=== PATIENT | male | born 1945 | race Caucasian/White ===

== ENCOUNTER 2018-05-29 00:46 | Emergency (ER) | payer MEDICARE ==
[~2018-05-29] VITALS: Ht 175.3 cm; Wt 98.9 kg
[~2018-05-29 00:46] MED LIST: AMLO5 PO; ASPI81CH PO; ATOR40TA PO; Acidophilus La100 GM PO; BACL10 PO; BUME2 PO; BUPR150ER PO; CALCA500CH PO; CHOL10002 PO; Carvedilol12.5 MG PO; DOC250 PO; DOXA4 PO; ERGO50000 PO; FINA5 PO; FURO40 PO; HYDR10 PO; HYDR1TAB94 PO; INSUASPI; INSULANPEN SC; Isosorbide Mono10 MG PO; LEVEMIR FL100 UNIT/1 SC; Nitrostat0.4 MG SL; ONDA4 PO; RANI150 PO; SENN187 PO; Senna Laxative8.6 MG PO; TAMS.4ER PO; TRAM50 PO; TRAZ100 PO
[2018-05-29 01:10] LABS: Chloride (POC) 93 mmol/L (98-108); Creatinine (POC) 7.7 mg/dL (0.8-1.3); Glucose (ISTAT POC) 228 mg/dL (70-99); Hemoglobin (POC) 10.9 g/dL (13.5-17.5); Potassium (POC) 4.6 mmol/L (3.5-5.5); Sodium (POC) 133 mmol/L (135-148); Total CO2 (POC) 28 mmol/L (21-32)
[2018-05-29 01:15] LABS: BASOPHILS ABSOLUTE AUTO 0.03 K/mm3 (0.00-0.23); BASOPHILS PERCENT AUTO 0 % (0-2); EOSINOPHILS ABSOLUTE AUTO 0.04 K/mm3 (0.00-0.68); EOSINOPHILS PERCENT AUTO 0 % (0-6); Hematocrit 33.1 % (37.0-53.0); Hemoglobin 10.8 g/dL (13.5-17.5); IMMATURE GRAN ABSOLUTE AUTO 0.03 K/mm3 (0.00-0.10); IMMATURE GRAN PERCENT AUTO 0 % (0-1); LYMPHOCYTES ABSOLUTE AUTO 1.29 K/mm3 (0.84-5.20); LYMPHOCYTES PERCENT AUTO 14 % (21-46); MONOCYTES ABSOLUTE AUTO 0.65 K/mm3 (0.16-1.47); MONOCYTES PERCENT AUTO 7 % (4-13); Mean Corpuscular HGB 31.8 pg (26.0-34.0); Mean Corpuscular HGB Conc 32.6 g/dL (31.5-36.5); Mean Corpuscular Volume 97 fL (80-100); Mean Platelet Volume 11.5 fL (9.1-12.4); NEUTROPHILS ABSOLUTE AUTO 7.11 K/mm3 (1.96-9.15); NEUTROPHILS PERCENT AUTO 78 % (41-73); Platelet Count 145 K/mm3 (150-400); RDW Coefficient Variation 12.4 % (11.7-14.2); RDW Standard Deviation 44.6 fL (35.1-46.3); White Blood Cell Count 9.15 K/mm3 (4.00-11.30)
[2018-05-29 01:34] LABS: Troponin I 0.064 ng/mL (0.000-0.040)
[2018-05-29 01:35] LABS: Albumin, Blood 3.2 g/dL (3.4-5.0); Albumin/Globulin Ratio 0.8 (0.8-1.8); Bilirubin, Total 0.6 mg/dL (0.1-1.0); Bun/Creatinine Ratio 8.8 (12.0-20.0); Creatinine, Blood 7.27 mg/dL (0.60-1.20); Globulin, Blood 3.9 g/dL (2.2-4.0); Potassium, Blood 4.7 mmol/L (3.5-5.5); Total Protein, Blood 7.1 g/dL (6.4-8.2)
[2018-05-29] MEDS ORDERED: NOVOLIN 70100 UNIT/2 SQ (01:48)
[2018-05-29] MEDS ORDERED: DOCU100 PO (01:49)
[2018-05-29] MEDS ORDERED: CALCA400CH PO (01:49)
== END 2018-05-29 03:08 | disposition home or self-care (01) ==
LOC: ER 00:46
PROVIDERS: Emergency Medicine
DX: R09.89 Other specified symptoms and signs involving the circulatory and respiratory systems (principal); E11.9 Type 2 diabetes mellitus without complications; I10 Essential (primary) hypertension; I25.2 Old myocardial infarction; Z95.1 Presence of aortocoronary bypass graft
CPT/HCPCS: 71045; 80047; 80053; 83690; 84484; 85014; 85025; 93005; 93010; 99285-25

== ENCOUNTER 2018-09-29 11:41 | Inpatient (IN) | payer MEDICARE ==
[~2018-09-29] VITALS: Ht 175.3 cm; Wt 114.6 kg
[~2018-09-29 11:41] MED LIST changes: -ASPI81CH PO; +DOCU100 PO; +Humalog100 UNIT/3 SC; +LO-DOSE ASPIRIN81 MG PO; +[UNRECOGNIZED DRUG - OTHER] PO
[2018-09-29] MEDS ORDERED: GABA100 PO (13:34)
[2018-09-29] MEDS ORDERED: Flonase 0.05% N16 GM (13:36)
[2018-09-29] MEDS ORDERED: LORATADINE10 MG PO (13:36)
[2018-09-29] MEDS ORDERED: ROPI.25 PO (13:37)
[2018-09-29] MEDS ORDERED: SENN187 PO (13:38)
[2018-09-29] MEDS ORDERED: ALBU90OI61 INH (13:39)
[2018-09-29] MEDS ORDERED: Voltaren100 GM TOP (13:40)
[2018-09-29] MEDS ORDERED: NITR.4SL SL (13:41)
[2018-09-29] MEDS ORDERED: ONDA4 PO (13:42)
[2018-09-29] MEDS ORDERED: Almacone Liqui355 ML PO (13:43)
[2018-09-29] MEDS ORDERED: Metamucil Smooth1 EA PO (13:44)
[2018-09-29] MEDS ORDERED: CHOL10002 PO ×2 (13:44→16:40)
[2018-09-29] MEDS ORDERED: Novolog100 UNIT/1 SC (14:17)
[2018-09-29] MEDS ORDERED: Calcium Carbon650 MG PO (16:39)
[2018-09-29] MEDS ORDERED: Lantus100 UNIT/1 SC (16:44)
[2018-09-29] MEDS ORDERED: SALONPAS GEL-P1 EACH TD (16:47)
[2018-09-29] MEDS ORDERED: TRAM50 PO (16:48)
--- NOTE | 2018-09-29 18:16 | NUR ---
PT ADMITTED TO ROOM. ADMIT DONE. DENIES PAIN EXCEPT SOME LIGHT DISCOMFORT IN LEFT LEG. LEG IS SWOLLEN, STATES HAS BEEN FOR 2-3 MONTHS. SCAB BELOW LEFT KNEE. AND OLD SCABS ON TOES OF LEFT FOOT. PLAN TO TAKE PIX BY SHIFT END, IF NOT PASS TO TIGRE KHAN. PT STARTING DIALYSIS IN ROOM AT THIS TIME. FAMILY AT BEDSIDE. PT AMBULATED TO BATHROOM SBA. DID WELL. NO SOB NOTED. NO DIZZINESS OR UNSTEADINESS NOTED. DIALYSIS FISTULA RT ARM. NOTICE PLACED ABOVE BED. H/R REG, NO MURMER NOTED. PER TELE: AFIB WITH PVC'S, BBB, RATE 80'S. LUNGS CLEAR RESP EASY, UNLABORED. ON R.A. SITTING ON EDGE OF BED. BT X4 LAST BM TODAY. VOIDS BATHROOM. BED IN LOW POSITION, CALL LITEIN REACH, CALLS APROP
--- NOTE | 2018-09-29 18:47 | NUR ---
CALLED BACK FOR HD 1:1 NON-ROUTINE HOURS TREATMENT PER DR DICK'S ORDERS FOR PATIENT ADMITTED VIA ER FOR FLUID EXCESS, MISSED CHRONIC DIALYSIS APPOINTMENT AND C/O SOB.
--- NOTE | 2018-09-29 21:25 | NUR ---
Assumed care of pt at approx 1900 from ERIN To. Pt recieving hemodialysis, VSS, pt without complaints at this time. Alert and oriented, uses call light appropriately. See shift assessment for detailed assessment.
[2018-09-30 00:48] LABS: BASOPHILS ABSOLUTE AUTO 0.06 K/mm3 (0.00-0.23); BASOPHILS PERCENT AUTO 1 % (0-2); EOSINOPHILS ABSOLUTE AUTO 0.07 K/mm3 (0.00-0.68); EOSINOPHILS PERCENT AUTO 1 % (0-6); Hematocrit 36.8 % (37.0-53.0); Hemoglobin 11.7 g/dL (13.5-17.5); IMMATURE GRAN ABSOLUTE AUTO 0.02 K/mm3 (0.00-0.10); IMMATURE GRAN PERCENT AUTO 0 % (0-1); LYMPHOCYTES ABSOLUTE AUTO 0.85 K/mm3 (0.84-5.20); LYMPHOCYTES PERCENT AUTO 10 % (21-46); MONOCYTES ABSOLUTE AUTO 0.94 K/mm3 (0.16-1.47); MONOCYTES PERCENT AUTO 11 % (4-13); Mean Corpuscular HGB 32.4 pg (26.0-34.0); Mean Corpuscular HGB Conc 31.8 g/dL (31.5-36.5); Mean Corpuscular Volume 102 fL (80-100); Mean Platelet Volume 10.8 fL (9.1-12.4); NEUTROPHILS ABSOLUTE AUTO 6.28 K/mm3 (1.96-9.15); NEUTROPHILS PERCENT AUTO 77 % (41-73); Platelet Count 143 K/mm3 (150-400); RDW Coefficient Variation 14.3 % (11.7-14.2); RDW Standard Deviation 54.4 fL (35.1-46.3); Red Blood Cell Count 3.61 M/mm3 (4.30-5.90); White Blood Cell Count 8.22 K/mm3 (4.00-11.30)
[2018-09-30 01:07] LABS: Alanine Aminotransfer (ALT/SGP 56 U/L (12-78); Albumin, Blood 2.9 g/dL (3.4-5.0); Albumin/Globulin Ratio 0.6 (0.8-1.8); Alk Phos 194 U/L (50-136); Anion Gap 8 mmol/L (6-16); Aspartate Aminotrans (AST/SGOT 56 U/L (12-37); Bilirubin, Total 0.8 mg/dL (0.1-1.0); Blood Urea Nitrogen 63 mg/dL (8-24); Bun/Creatinine Ratio 16.4 (12.0-20.0); CO2, Blood 30 mmol/L (21-32); Calcium, Blood 8.4 mg/dL (8.5-10.1); Chloride, Blood 98 mmol/L (98-108); Creatinine, Blood 3.83 mg/dL (0.60-1.20); Globulin, Blood 4.6 g/dL (2.2-4.0); Glomerular Filtration Rate 17 (60-); Glucose, Blood 223 mg/dL (70-99); Magnesium, Blood 2.4 mg/dL (1.6-2.4); Phosphorus, Blood 4.2 mg/dL (2.5-4.9); Potassium, Blood 4.1 mmol/L (3.5-5.5); Sodium, Blood 136 mmol/L (136-145); Total Protein, Blood 7.5 g/dL (6.4-8.2)
--- NOTE | 2018-09-30 04:51 | NUR ---
SHIFT SUMMARY: PATIENT CONTINUOUSLY PACING THE ROOM THIS SHIFT STATING HE FEELS SLIGHTLY SOB. ALL SATURATIONS WNL, NO CHANGES TO LUNG SOUNDS. PATIENT C/O MONTERROSO AND LEFT HAND DISCOMFORT, MEDICATION GIVEN PER MD ORDERS AND HAND WRAPPED IN WARM BLANKET. PATEINT PROVIDED A RECLINER HE STATES HE IS MORE COMFORTABLE SLEEPING UPRIGHT. VSS, CALL LIGHT WITHIN REACH, NO OTHER ISSUES THIS SHIFT
--- NOTE | 2018-09-30 10:39 | NUR ---
Echocardiogram using 0.60ml of Definity contrast performed.
--- NOTE | 2018-09-30 17:10 | NUR ---
PT NOW UP IN CHAIR AWAITING DINNER. TRANSFERS SELF INDEP WITH CANE AROUND ROOM. ALL SCHED MEDS GIVEN. ADDITIONAL DOSE OF NORVASC JUST GIVEN. BP 164/89. ALSO GOT HOME MEDS REORDERED. DR CESPEDES CONSULTED TODAY, ADJUSTED MEDICATIONS, EKG AND ECHO DONE. CBG'S NOW BEING COVERED WITH INSULIN. NO OTHER ACUTE CHANGES NOTED THIS SHIFT. CONT TO MONITOR AND REPORT OFF TO PM RN.
--- NOTE | 2018-09-30 22:33 | NUR ---
Assumed care of pt at approx 1900. VSS. pt sitting in chair, breathing easy and unlabored. Pt in no apparent sign of distress. Pt recieved bed bath, ambulates with cane to and from bathroom with steady gait. Family with pt at bedside upon arrival. Family spoke with this RN and states that pt seems "off" and "forgetful". Pt has been alert and oriented, responds appropriately, uses call light appropriately. Pt able to make needs known. C/o generalized pain, Carlton Ramirez notified and ultram 50mg BID restarted this shift. See shift assessment for detailed assessment. Will continue to monitor and update as needed. Pt currently sitting in chair, call light in reach.
[2018-10-01 03:50] LABS: BASOPHILS ABSOLUTE AUTO 0.06 K/mm3 (0.00-0.23); BASOPHILS PERCENT AUTO 1 % (0-2); EOSINOPHILS ABSOLUTE AUTO 0.06 K/mm3 (0.00-0.68); EOSINOPHILS PERCENT AUTO 1 % (0-6); Hematocrit 35.6 % (37.0-53.0); Hemoglobin 11.3 g/dL (13.5-17.5); IMMATURE GRAN ABSOLUTE AUTO 0.02 K/mm3 (0.00-0.10); IMMATURE GRAN PERCENT AUTO 0 % (0-1); LYMPHOCYTES ABSOLUTE AUTO 0.94 K/mm3 (0.84-5.20); LYMPHOCYTES PERCENT AUTO 13 % (21-46); MONOCYTES ABSOLUTE AUTO 0.89 K/mm3 (0.16-1.47); MONOCYTES PERCENT AUTO 12 % (4-13); Mean Corpuscular HGB 32.2 pg (26.0-34.0); Mean Corpuscular HGB Conc 31.7 g/dL (31.5-36.5); Mean Corpuscular Volume 101 fL (80-100); NEUTROPHILS ABSOLUTE AUTO 5.49 K/mm3 (1.96-9.15); NEUTROPHILS PERCENT AUTO 74 % (41-73); Platelet Count 143 K/mm3 (150-400); RDW Coefficient Variation 14.2 % (11.7-14.2); RDW Standard Deviation 53.2 fL (35.1-46.3); Red Blood Cell Count 3.51 M/mm3 (4.30-5.90); White Blood Cell Count 7.46 K/mm3 (4.00-11.30)
[2018-10-01 04:08] LABS: Albumin, Blood 2.9 g/dL (3.4-5.0); Anion Gap 9 mmol/L (6-16); Blood Urea Nitrogen 93 mg/dL (8-24); Bun/Creatinine Ratio 18.7 (12.0-20.0); CO2, Blood 29 mmol/L (21-32); Calcium, Blood 8.5 mg/dL (8.5-10.1); Chloride, Blood 96 mmol/L (98-108); Creatinine, Blood 4.98 mg/dL (0.60-1.20); Glomerular Filtration Rate 12 (60-); Glucose, Blood 78 mg/dL (70-99); Phosphorus, Blood 6.6 mg/dL (2.5-4.9); Potassium, Blood 4.1 mmol/L (3.5-5.5); Sodium, Blood 134 mmol/L (136-145)
--- NOTE | 2018-10-01 04:57 | NUR ---
Shift Summary Pt increasingly forgetful this shift, found multiple times wandering in room stating "i am going to the dining baig" and "i am going to the living room to watch TV". asked orientation questions, pt able to answer appropriately, states he knows that he is in [facility]. Pt states he has not slept for the past two nights. Redirected pt multiple times this shift, pt compliant and follows directions but needs reinforcement. Pt able to walk independantly in room with steady gait. VSS. Denies chest pain or chest pressure. Denies SOB. Breathing remains easy and unlabored. pt frequents the bathroom with oligouria d/t hemodialysis. Call light in reach, pt currently in recliner watching TV. No events on tele. Will continue to monitor and update as needed.
--- NOTE | 2018-10-01 09:40 | NUR ---
PT TO DIALYSIS FOR HEMODIALYSIS.
--- NOTE | 2018-10-01 14:44 | NUR ---
RECEIVED REPORT AT SHIFT CHANGE AND ASSUMED CARE OF PATIENT. PT APPEARS DISHEVELED AND A BIT CONFUSED. WHILE HE KNOWS WHERE HE IS, HE HAS NONSENSICAL SPEECH PATTERN. IT WAS REPORTED TO THIS RN THAT THE PATIENT HAS NOT SLEPT WELL FOR SEVERAL DAYS. PROVIDING LOW-STIM ENVIRONMENT AND WILL HELP TO ALLOW PT TO SLEEP MUCH A POSSIBLE DURING SHIFT. PT IS SCHEDULED TO HAVE DIALYSIS TODAY. WILL CONTINUE TO MONITOR AND FOLLOW ORDERS FOR THIS PATIENT.
--- NOTE | 2018-10-01 18:16 | NUR ---
CALLED DR. EDWARDS, SHE STATED WE CAN CHANGE ABX TO PO AND ADDITIONALLY ORDERED A SLEEP AID FOR TONIGHT. ENTERED ORDERS PER
--- NOTE | 2018-10-01 18:18 | NUR ---
SUMMARY: PT HAD A COUPLE OF NAPS TODAY, HOWEVER HE WAS UP AND DOWN SEVERAL TIMES TO HAVE BM'S AND USE THE BATHROOM. PT STATES HE IS STARTING TO FEEL A BIT BETTER THIS EVENING. PT HAD HEMODIALYSIS TODAY. WHILE PT WAS SLEEPING, IV IN LFA WAS PULLED OUT. THIS RN CALLED FOR ORDERS. SHE STATED NOT TO PLACE ANOTHER IV AND CHANGED MEDS TO PO FOR POTENTIAL UPCOMING DISCHARGE. WILL CONTINUE TO MONITOR AND GIVE REPORT TO NOC RN. BED IS LOW AND LOCKED, BED ALARM ON.
--- NOTE | 2018-10-02 00:19 | NUR ---
Assumed care of pt at approx 1900. Pt VSS, breathing easy and unlabored, denies chest pain or chest pressure. Denies SOB. Pt remains forgetful of limitations and bed alarm has been inplace this shift to ensure pt safety. Pt is alert and oriented, does not call as instructed. Bed alarm activated two times since 1899, pt redirected to use call light to ask for assistance, verbalizes understanding but then proceeds to attempt to get out of bed alone. Pt with new medications this shift to aide in sleep, for this reason use of BSC in place for pt this shift to limit risk for fall. pt sleeping on and off so far this shift, compliant with CPAP, o2 saturations >95%. See shift assessment for detailed assessment. At this time, pt asleep, bed alarm in place, call light in reach, bed in lowest and locked position. This RN will continue to monitor pt closely and update as needed.
[2018-10-02 03:53] LABS: BASOPHILS ABSOLUTE AUTO 0.05 K/mm3 (0.00-0.23); BASOPHILS PERCENT AUTO 1 % (0-2); EOSINOPHILS ABSOLUTE AUTO 0.09 K/mm3 (0.00-0.68); EOSINOPHILS PERCENT AUTO 1 % (0-6); Hematocrit 36.2 % (37.0-53.0); Hemoglobin 11.5 g/dL (13.5-17.5); IMMATURE GRAN ABSOLUTE AUTO 0.02 K/mm3 (0.00-0.10); IMMATURE GRAN PERCENT AUTO 0 % (0-1); LYMPHOCYTES PERCENT AUTO 15 % (21-46); MONOCYTES ABSOLUTE AUTO 1.15 K/mm3 (0.16-1.47); MONOCYTES PERCENT AUTO 15 % (4-13); Mean Corpuscular HGB 32.6 pg (26.0-34.0); Mean Corpuscular HGB Conc 31.8 g/dL (31.5-36.5); Mean Corpuscular Volume 103 fL (80-100); Mean Platelet Volume 10.9 fL (9.1-12.4); NEUTROPHILS ABSOLUTE AUTO 5.19 K/mm3 (1.96-9.15); NEUTROPHILS PERCENT AUTO 68 % (41-73); Platelet Count 134 K/mm3 (150-400); RDW Coefficient Variation 14.4 % (11.7-14.2); RDW Standard Deviation 54.2 fL (35.1-46.3); Red Blood Cell Count 3.53 M/mm3 (4.30-5.90)
[2018-10-02 04:10] LABS: Albumin, Blood 2.8 g/dL (3.4-5.0); Anion Gap 9 mmol/L (6-16); Blood Urea Nitrogen 84 mg/dL (8-24); Bun/Creatinine Ratio 17.7 (12.0-20.0); CO2, Blood 29 mmol/L (21-32); Calcium, Blood 8.4 mg/dL (8.5-10.1); Chloride, Blood 98 mmol/L (98-108); Creatinine, Blood 4.74 mg/dL (0.60-1.20); Glomerular Filtration Rate 13 (60-); Glucose, Blood 133 mg/dL (70-99); Potassium, Blood 3.9 mmol/L (3.5-5.5); Sodium, Blood 136 mmol/L (136-145)
--- NOTE | 2018-10-02 05:25 | NUR ---
Shift Summary No further changes this shift, VSS, no apparent sign of distress, breathing remains easy and unlabored, denies SOB this shift, wore CPAP compliantly while asleep. Pt able to sleep through most of the shift this night[place] [facility] [place] d/t unsteady gait r/t new medication given at 2100. Pt remains oriented, more lethargic this shift. As shift went on, pt able to call appropriately and did not attempt to exit bed unattended. Bed alarm remains in place. Bed in lowest and locked position, three side rails up, call light in reach. pt frequently monitored by this RN this shift. Will continue to monitor and update.
[2018-10-02] MEDS ORDERED: Isosorbide Mono30 MG PO (12:45)
[2018-10-02] MEDS ORDERED: AMLO10 PO (12:47)
[2018-10-02] MEDS ORDERED: CEPH500 PO (12:48)
[2018-10-02] MEDS ORDERED: LIDO700A20 TOP (12:50)
[2018-10-02] MEDS ORDERED: FAMO20 PO (12:51)
[2018-10-02] MEDS ORDERED: METO25ER PO (12:52)
[2018-10-02] MEDS ORDERED: LOSA50 PO (12:53)
[2018-10-02] MEDS ORDERED: XARELTO15 MG PO (12:55)
[2018-10-02] MEDS ORDERED: MIRT30 PO (12:56)
--- NOTE | 2018-10-02 12:56 | NUR ---
RECEIVED REPORT AND ASSUMED CARE OF PATIENT. HE IS SLEEPING AT TIME OF SHIFT CHANGE. HE CONTINUED TO REST COMFORTABLLY AND WHEN HE AWAKES HE IS JOKING AROUND WITH THIS RN. DR TO SEE PATIENT AND PLACED DISCHARGE ORDERS. WHEN DISCUSSING DISCHARGE WITH PATIENT, HE IS HAPPY AND SMILING AT THE PROSPECT OF GOING HOME. WILL CONTINUE TO MONITOR AND COMPLETE DISCHARGE.
--- NOTE | 2018-10-02 16:18 | NUR ---
EXPLAINED PT MEDICATIONS AND DISCHARGE INSTRUCTIONS TO DAUGHTER ASA. PROVIDED WRITTEN MATERIALS AND INFORMATION RELATED TO DX, MEDS AND FOLLOW UP. DAUGHTER EXPRESSED UNDERSTANDING AND ASKED MULTIPLE QUESTIONS R/T AFIB AND THE MEDICATIONS PT IS DISCHARGING WITH. ASSISTED PT GETTING DRESSED AND WHEELED TO CAR FOR DISCHARGE.
== END 2018-10-02 15:41 | disposition home or self-care (01) | DRG 280 ==
LOC: ER 11:41 → PCU 14:56 → ERHOLD 14:56 → PCU 16:33
PROVIDERS: ADMIT Internal Medicine
PROC: 5A1D70Z Performance of Urinary Filtration, Intermittent, Less than 6 Hours Per Day (ICD-10-PCS; principal; 2018-09-29)
DX: I13.0 Hypertensive heart and chronic kidney disease with heart failure and stage 1 through stage 4 chronic kidney disease, or unspecified chronic kidney disease (principal); I21.4 Non-ST elevation (NSTEMI) myocardial infarction; I50.33 Acute on chronic diastolic (congestive) heart failure; N18.4 Chronic kidney disease, stage 4 (severe); L03.90 Cellulitis, unspecified; D63.1 Anemia in chronic kidney disease; I48.91 Unspecified atrial fibrillation; Z79.01 Long term (current) use of anticoagulants; E83.39 Other disorders of phosphorus metabolism; G47.33 Obstructive sleep apnea (adult) (pediatric); N40.0 Benign prostatic hyperplasia without lower urinary tract symptoms
CPT/HCPCS: 36415; 80053; 80069; 82947; 83735; 83880; 84100; 84484; 85025; 93005; 93010; 93971; 94660; 94762; 99285-25; C8929; J0696; J1644; Q9957

== ENCOUNTER 2018-12-27 13:37 | Observation (INO) | payer MEDICARE ==
[~2018-12-27] VITALS: Ht 175.3 cm; Wt 114.8 kg
[~2018-12-27 13:37] MED LIST changes: +ALBU90OI61 INH; +AMLO10 PO; +Almacone Liqui355 ML PO; +CEPH500 PO; +Calcium Carbon650 MG PO; +Colace250 MG PO; -DOCU100 PO; +FAMO20 PO; +Flonase 0.05% N16 GM; +GABA100 PO; +Isosorbide Mono30 MG PO; +LIDO700A20 TOP; +LORATADINE10 MG PO; +LOSA50 PO; +Lantus100 UNIT/1 SC; +METO25ER PO; +MIRT30 PO; +Metamucil Smooth1 EA PO; +NITR.4SL SL; +Novolog100 UNIT/1 SC; +Ropinirole HCl0.5 MG PO; +SALONPAS GEL-P1 EACH TD; +Voltaren100 GM TOP; +XARELTO15 MG PO
[2018-12-27 14:50] LABS: BASOPHILS ABSOLUTE AUTO 0.05 K/mm3 (0.00-0.23); BASOPHILS PERCENT AUTO 1 % (0-2); EOSINOPHILS ABSOLUTE AUTO 0.19 K/mm3 (0.00-0.68); EOSINOPHILS PERCENT AUTO 2 % (0-6); Hemoglobin 11.4 g/dL (13.5-17.5); IMMATURE GRAN ABSOLUTE AUTO 0.04 K/mm3 (0.00-0.10); IMMATURE GRAN PERCENT AUTO 1 % (0-1); LYMPHOCYTES ABSOLUTE AUTO 0.51 K/mm3 (0.84-5.20); LYMPHOCYTES PERCENT AUTO 6 % (21-46); MONOCYTES ABSOLUTE AUTO 1.13 K/mm3 (0.16-1.47); MONOCYTES PERCENT AUTO 13 % (4-13); Mean Corpuscular HGB 30.5 pg (26.0-34.0); Mean Corpuscular HGB Conc 30.8 g/dL (31.5-36.5); Mean Corpuscular Volume 99 fL (80-100); Mean Platelet Volume 11.2 fL (9.1-12.4); NEUTROPHILS ABSOLUTE AUTO 6.64 K/mm3 (1.96-9.15); NEUTROPHILS PERCENT AUTO 78 % (41-73); Platelet Count 162 K/mm3 (150-400); RDW Standard Deviation 54.1 fL (35.1-46.3); Red Blood Cell Count 3.74 M/mm3 (4.30-5.90); White Blood Cell Count 8.56 K/mm3 (4.00-11.30)
[2018-12-27 15:03] LABS: Albumin, Blood 2.6 g/dL (3.4-5.0); Albumin/Globulin Ratio 0.5 (0.8-1.8); Bilirubin, Total 0.9 mg/dL (0.1-1.0); Bun/Creatinine Ratio 13.2 (12.0-20.0); Calcium, Blood 8.5 mg/dL (8.5-10.1); Creatinine, Blood 3.55 mg/dL (0.60-1.20); Globulin, Blood 5.6 g/dL (2.2-4.0); Potassium, Blood 3.6 mmol/L (3.5-5.5); Total Protein, Blood 8.2 g/dL (6.4-8.2); Troponin I 0.059 ng/mL (0.000-0.040)
[2018-12-27] MEDS ORDERED: NITR.4SL SL (15:34)
[2018-12-27] MEDS ORDERED: TEMA15 PO (15:36)
--- NOTE | 2018-12-27 18:42 | NUR ---
URGENT DIALYSIS ORDERED TONIGHT BY DR ARTEAGA. AWAITING TRANSFER TO FLOOR.
[2018-12-27] MEDS ORDERED: TRAM50 PO (20:15)
--- NOTE | 2018-12-28 04:08 | NUR ---
SHIFT SUMMARY: PT IS ALERT AND ORIENTED. PT IS CALM AND COOPERATIVE WITH CARE. FAMILY AT THE BEDSIDE UPON ADMISSION. PT IS A STANDBY ASSIST, UP TO WALK IN THE MASSEY ON ONE OCCASION. PT RECEIVED DIALYSIS IN HIS ROOM UPON ADMISSION, TOLERATED WELL. PT WORE CPAP OVERNIGHT WHILE IN BED. PT REPORTS MINOR SOB UPON EXERTION, O2 @ 2 L. PT REPORTS NECK PAIN, APPLIED LIDOCAINE PATCH AND GAVE TRAMADOL. PT DENIES NAUSEA AND VOMITING. NO ACUTE CHANGES OR COMPLICATIONS OVERNIGHT. WILL CONTINUE TO MONITOR.
[2018-12-28 05:02] LABS: Bun/Creatinine Ratio 13.8 (12.0-20.0); Calcium, Blood 8.6 mg/dL (8.5-10.1); Creatinine, Blood 3.48 mg/dL (0.60-1.20); Potassium, Blood 4.2 mmol/L (3.5-5.5)
[2018-12-28] MEDS ORDERED: Bumetanide1 MG PO (12:00)
--- NOTE | 2018-12-28 14:49 | NUR ---
discharge summary patient is pleasant. all informatin was provided to him and his family. there are no current questions. currently the patient had his iv removed and was wheeled down to the car by kenney.
== END 2018-12-28 14:31 | disposition home or self-care (01) ==
LOC: ER 13:37 → MEDS 13:38
PROVIDERS: Emergency Medicine; ADMIT Hospitalist
DX: E87.70 Fluid overload, unspecified (principal); I13.2 Hypertensive heart and chronic kidney disease with heart failure and with stage 5 chronic kidney disease, or end stage renal disease; I50.43 Acute on chronic combined systolic (congestive) and diastolic (congestive) heart failure; E11.22 Type 2 diabetes mellitus with diabetic chronic kidney disease; N18.6 End stage renal disease; D63.1 Anemia in chronic kidney disease; E66.01 Morbid (severe) obesity due to excess calories; G47.00 Insomnia, unspecified; Z79.4 Long term (current) use of insulin; Z79.82 Long term (current) use of aspirin; Z79.899 Other long term (current) drug therapy; Z68.37 Body mass index [BMI] 37.0-37.9, adult
CPT/HCPCS: 36415; 71046; 80048; 80053; 82947; 83880; 84484; 85025; 93005; 93010; 94660; 94762; 99285-25; G0257; G0378; J2930

== ENCOUNTER 2019-03-08 00:18 | Day surgery (SDC) | payer MEDICARE ==
[~2019-03-08 00:18] MED LIST changes: +Bumetanide1 MG PO; +TEMA15 PO
[2019-03-08] MEDS ORDERED: VITAMIN D31000 UNI2 PO (08:01)
== END 2019-03-08 11:56 | disposition home or self-care (01) ==
LOC: ATC 00:18
DX: N18.6 End stage renal disease (principal); D50.9 Iron deficiency anemia, unspecified; N25.81 Secondary hyperparathyroidism of renal origin; E46 Unspecified protein-calorie malnutrition; Z99.2 Dependence on renal dialysis
CPT/HCPCS: 36415; 36430; 86850; 86900; 86901; 86923; J7050; P9016

== ENCOUNTER 2019-11-19 04:46 | Inpatient (IN) | payer OTHER, MEDICARE ==
[~2019-11-19] VITALS: Ht 175.3 cm; Wt 99.8 kg
[~2019-11-19 04:46] MED LIST changes: +VITAMIN D31000 UNI2 PO
[2019-11-19] MEDS ORDERED: ENTRESTO 24 MG1 EACH PO (05:12)
[2019-11-19] MEDS ORDERED: PANT40 PO (05:16)
[2019-11-19 05:23] LABS: BASOPHILS ABSOLUTE AUTO 0.05 K/mm3 (0.00-0.23); BASOPHILS PERCENT AUTO 1 % (0-2); EOSINOPHILS PERCENT AUTO 3 % (0-6); Hematocrit 36.4 % (37.0-53.0); Hemoglobin 11.3 g/dL (13.5-17.5); IMMATURE GRAN ABSOLUTE AUTO 0.01 K/mm3 (0.00-0.10); IMMATURE GRAN PERCENT AUTO 0 % (0-1); LYMPHOCYTES ABSOLUTE AUTO 0.59 K/mm3 (0.84-5.20); LYMPHOCYTES PERCENT AUTO 10 % (21-46); MONOCYTES ABSOLUTE AUTO 0.62 K/mm3 (0.16-1.47); MONOCYTES PERCENT AUTO 10 % (4-13); Mean Corpuscular HGB 30.9 pg (26.0-34.0); Mean Corpuscular Volume 100 fL (80-100); Mean Platelet Volume 11.1 fL (9.1-12.4); NEUTROPHILS ABSOLUTE AUTO 4.48 K/mm3 (1.96-9.15); NEUTROPHILS PERCENT AUTO 75 % (41-73); Platelet Count 159 K/mm3 (150-400); RDW Coefficient Variation 15.2 % (11.7-14.2); RDW Standard Deviation 55.8 fL (35.1-46.3); Red Blood Cell Count 3.66 M/mm3 (4.30-5.90); White Blood Cell Count 5.95 K/mm3 (4.00-11.30)
[2019-11-19 05:37] LABS: International Normalized Ratio 1.16; Prothrombin Time Results 12.3 Sec (9.7-11.5)
[2019-11-19 05:44] LABS: Albumin, Blood 2.8 g/dL (3.4-5.0); Albumin/Globulin Ratio 0.5 (0.8-1.8); Bilirubin, Total 0.6 mg/dL (0.1-1.0); Bun/Creatinine Ratio 14.6 (12.0-20.0); Calcium, Blood 8.6 mg/dL (8.5-10.1); Creatinine, Blood 5.61 mg/dL (0.60-1.20); Globulin, Blood 5.7 g/dL (2.2-4.0); Potassium, Blood 4.1 mmol/L (3.5-5.5); Total Protein, Blood 8.5 g/dL (6.4-8.2); Troponin I 0.039 ng/mL (0.000-0.040)
--- NOTE | 2019-11-19 07:34 | NUR ---
HEMODIALYSIS ORDERED BY DR ARTEAGA. PLAN FOR HD THIS MORNING AT 0900 IN DIALYSIS ROOM.
--- NOTE | 2019-11-19 12:34 | NUR ---
Dialysis called and went to pick him up. He was in wheelchair and pushed to ICU 14 and he was able to transfer to bed with one assist. He has right upper arm fistula wrapped in coban. Daughter set him up for lunch and he tolerating well. He is currently hypertensive 180 systolic on arrival. Patient has 18ga IV in LAC flushed and SL'd Received report from [facility]. Patient denies any chest pain.
[2019-11-19 13:53] LABS: CPK Creatine Kinase 252 U/L (39-308)
--- NOTE | 2019-11-19 14:00 | NUR ---
Patient has been resting since daughter left. VSS, See EMR, he has been hypertensive off and on. He repositions self in bed. He ate 100% of lunch. He continues to deny any chest pain.
--- NOTE | 2019-11-19 17:16 | NUR ---
Gave report to Ashley KHAN. Patient up to chair with assist. VSS, See EMR. He stood to use urinal and had 250ml cloudy yellow urine out. He had US of abdomen and Called Dr Hugo with results and ordered US guided Para in am.
--- NOTE | 2019-11-19 18:48 | NUR ---
SHIFT SUMMARY: NO ACUTE CHANGES SINCE ASSUMING CARE. PT REMAINS A&O, PLEASANT & COOPERATIVE. IN NO CURRENT DISTRESS. TOLERATED PO INTAKE OF DINNER WELL & CONTINUES SITTING UP IN CHAIR, VERBALIZES COMFORT. WILL CONTINUE TO MONITOR & REPORT OFF TO ONCOMING RN.
--- NOTE | 2019-11-19 19:00 | NUR ---
ASSUMED CARE ASSUMED CARE OF PATIENT. AWAKE AND ALERT. SITTING UP IN RECLINER, WATCHING TELEVISION. DENIES C/O PAIN OR DISCOMFORT. MONITOR SHOWS PACED RHYTHM, RATE 58-60. BP STABLE. RA SATS STABLE. RESPIRATIONS SHALLOW. PT STATES OCCASIONAL MILD DYSPNEA D/T SEVERE ABDOMINAL DISTENTION. OCCASIONAL NON-PRODUCTIVE COUGH NOTED. ABD SEVERELY DISTENDED AND FIRM. SHALONDA AV FISTULA NOTED. SEE SHIFT ASSESSMENT FOR FULL ASSESSMENT.
[2019-11-19 23:08] LABS: Troponin I 0.04 ng/mL (0.000-0.040)
--- NOTE | 2019-11-20 00:55 | NUR ---
CPAP/O2 PT SLEEPING WITH CPAP 6 VIA NASAL MASK. O2 SATURATIONS FREQUENTLY DECREASE TO MID-70s AND THEN INCREASES BACK TO MID-90s. PT APPEARS TO BE SLEEPING WITH MOUTH OPEN. O2 4L BLED INTO CPAP AT THIS TIME TO MAINTAIN SATS >90%.
[2019-11-20 03:47] LABS: BASOPHILS ABSOLUTE AUTO 0.06 K/mm3 (0.00-0.23); BASOPHILS PERCENT AUTO 1 % (0-2); EOSINOPHILS ABSOLUTE AUTO 0.24 K/mm3 (0.00-0.68); EOSINOPHILS PERCENT AUTO 4 % (0-6); Hematocrit 37.5 % (37.0-53.0); Hemoglobin 11.6 g/dL (13.5-17.5); IMMATURE GRAN ABSOLUTE AUTO 0.02 K/mm3 (0.00-0.10); IMMATURE GRAN PERCENT AUTO 0 % (0-1); LYMPHOCYTES ABSOLUTE AUTO 0.66 K/mm3 (0.84-5.20); LYMPHOCYTES PERCENT AUTO 12 % (21-46); MONOCYTES ABSOLUTE AUTO 0.49 K/mm3 (0.16-1.47); MONOCYTES PERCENT AUTO 9 % (4-13); Mean Corpuscular HGB 30.6 pg (26.0-34.0); Mean Corpuscular HGB Conc 30.9 g/dL (31.5-36.5); Mean Corpuscular Volume 99 fL (80-100); Mean Platelet Volume 10.9 fL (9.1-12.4); NEUTROPHILS ABSOLUTE AUTO 3.95 K/mm3 (1.96-9.15); NEUTROPHILS PERCENT AUTO 73 % (41-73); Platelet Count 173 K/mm3 (150-400); RDW Coefficient Variation 15.2 % (11.7-14.2); RDW Standard Deviation 55.3 fL (35.1-46.3); Red Blood Cell Count 3.79 M/mm3 (4.30-5.90); White Blood Cell Count 5.42 K/mm3 (4.00-11.30)
[2019-11-20 04:06] LABS: Albumin, Blood 2.5 g/dL (3.4-5.0); Albumin/Globulin Ratio 0.5 (0.8-1.8); Bilirubin, Total 0.6 mg/dL (0.1-1.0); Bun/Creatinine Ratio 12.4 (12.0-20.0); Calcium, Blood 8.6 mg/dL (8.5-10.1); Creatinine, Blood 5.23 mg/dL (0.60-1.20); Globulin, Blood 5.5 g/dL (2.2-4.0); Magnesium, Blood 2.6 mg/dL (1.6-2.4); Phosphorus, Blood 5.2 mg/dL (2.5-4.9); Potassium, Blood 4.3 mmol/L (3.5-5.5)
--- NOTE | 2019-11-20 06:46 | NUR ---
SHIFT SUMMARY NO ACUTE CHANGES. DENIED CHEST PAIN T/O SHIFT. MEDICATED WITH FENTANYL 50MCG IV X 2 DOSES FOR C/O NECK PAIN/STIFFNESS WITH ADEQUATE RELIEF. VSS. CPAP OF 6 WITH 4L O2 BLEED-IN WHEN ASLEEP. OCCASIONAL NPC. VOIDING SMALL AMOUNTS OF YELLOW URINE. MILD DYSPNEA NOTED AT TIMES D/T SEVERE ABDOMINAL DISTENTION. PLAN FOR US GUIDED PARACENTESIS TODAY. ALSO PLAN FOR GI CONSULT TODAY. WILL REPORT TO ONCOMING RN WHEN AVAILABLE.
--- NOTE | 2019-11-20 07:30 | NUR ---
Received report from Adia KHAN. Patient curled in bed on left side sleeping and awkoe to verbal stimuli and went back to sleep. He remains on RA and sats >90%'s. He uses urinal Appropriatly. He has 18ga LAC dressing intact and site WNL's flushed and SL'd. His abdomen very distended and is going for Parcentesis this am. VSS, See EMR
--- NOTE | 2019-11-20 09:58 | NUR ---
Patient was repositioned and was set up for breakfast and tolerated well. He was picked up at 0915 and went for US guided para and returned just now where he is sitting in chair by window. Will give am meds.
[2019-11-20 12:42] LABS: Automated BF WBC Count 0.102 K/mm3 (0-999); Body Fluid WBC Count 102 /mm3 (0-999)
[2019-11-20 12:51] LABS: Albumin, Body Fluid 1.8 g/dL; Lactate Dehydrogenase, Body Fl 161 U/L; Triglycerides, Body Fluid 30 mg/dL
[2019-11-20 13:00] LABS: Protein, Body Fluid 5.1 g/dL; RBC Count, Body Fluid 72 /mm3 (0-0)
[2019-11-20 13:10] LABS: Color, Body Fluid L Yellow (None-Yellow); Total Cell Count, Body Fluid 100
[2019-11-20 13:11] LABS: Appearance, Body Fluid Clear (Clear)
--- NOTE | 2019-11-20 13:30 | NUR ---
Patient has been up in chair since retuning watching TV. He is independent in room and remains on RA and sats>90%'s. He LAC is SL'd. He tolerate diet well and has asked for occassional snacks. He stands in room to use urinal. VSS, See EMR. Still awaiting GI consult.
--- NOTE | 2019-11-20 13:47 | NUR ---
Patient has been resting in bed. She is currently sitting up watching TV. Partial bath and when rolling zach to change linen , she had very large BM light brown in color. She staill has small amount of blood tinged liquid leaking aroun fole. Tovar continues to have davis red output, flushed several times to ensure flow. She is a little clear and able to communicate her needs. Changed linen and her gown. She has low grade temp. 100.2
[2019-11-20 15:03] LABS: pH, Body Fluid 7.5
--- NOTE | 2019-11-20 16:23 | NUR ---
On behalf of pt's spouse (who is on hospice), PC visit conducted. Pt provided space to reflect on events leading up to hospital admittance. Verbalized prayer and a blessing for pt. He verbalized gratitude.
--- NOTE | 2019-11-20 17:30 | NUR ---
No significant changes with patient. Dc'd tel;e per Dr Mendez. Dr Pruitt by and saw patient and is placing new labs in for Body fluids and will wait for results. Plan is for another Para in am. He remnains on RA and sats>90%'s and VSS, See EMR, Independent in room.
--- NOTE | 2019-11-20 19:50 | NUR ---
ASSUMED CARE RECEIVED REPORT FROM ERIN LIZ. PT IS ALERT AND ORIENTED X4 LAYING ON HIS LEFT SIDE WITH HIS CPAP ON. HE DENIES ANY CP, SOB, AND NAUSEA. BED IS LOW AND LOCKED. CALL LIGHT WITHIN REACH.
--- NOTE | 2019-11-20 21:41 | NUR ---
PT TRANSFER NOTE HANDOFF REPORT RECEIVED FROM ICU NURSE AMMON. PT TRANSFERED TO FLOOR VIA WHEELCHAIR. PT ORIENTED TO UNIT. CALL BUTTON WITHIN REACH. PT PROVIDED WITH SNACKS AND FLUIDS. PT DENIES CHEST PAIN. PT INFORMED OF PROCEDURES PLANNED FOR TOMORROW.
--- NOTE | 2019-11-20 21:45 | NUR ---
PT OUT OF ICU AT 2119 HE IS ALERT AND ORIENTED X 4, DENIES PAIN, NAUSEA, AND SHORTNESS OF BREATH. HIS ABDOMEN IS DISTENDED DUE TO HIS ASCITES. I CALLED HIS DAUGHTER PER PT REQUEST AND INFORMED HER OF THE TRANSFER. HE HAD STABLE VITALS UPON TRANSFER.
--- NOTE | 2019-11-21 04:45 | NUR ---
SHIFT SUMMARY ADMITTED FOR CHEST PAIN. FULL CODE. DENIES PAIN SINCE ADMIT. PLAN IS FOR CT SCAN TODAY AND PARACENTESIS (ASCITES) TODAY. HE HAS HAD PARACENTESIS RECENTLY. CONSULTS ARE DR SHELL AND DR ARTEAGA. HE IS A DIALYSIS PT WITH SHALONDA FISTULA. HE CAN RUN BRADYCARDIC 50'S - 60'S BPM, NO TELEMETRY. HE IS ON RENAL DIET, INDEPENDENT IN ROOM, CPAP AT NIGHT. HE IS ACHS, LOW SS. AWAITING MORNING LABS. HE DOES HAVE A PACEMAKER. TRANSFERED FROM ICU TO MEDICAL FLOOR THIS SHIFT.
[2019-11-21 05:17] LABS: Hematocrit 33.7 % (37.0-53.0); Hemoglobin 10.7 g/dL (13.5-17.5)
[2019-11-21 05:38] LABS: Albumin, Blood 2.4 g/dL (3.4-5.0); Anion Gap 7 mmol/L (6-16); Blood Urea Nitrogen 77 mg/dL (8-24); Bun/Creatinine Ratio 12.7 (12.0-20.0); CO2, Blood 33 mmol/L (21-32); Calcium, Blood 8.5 mg/dL (8.5-10.1); Chloride, Blood 91 mmol/L (98-108); Creatinine, Blood 6.04 mg/dL (0.60-1.20); Glomerular Filtration Rate 10 (60-); Glucose, Blood 132 mg/dL (70-99); Magnesium, Blood 2.6 mg/dL (1.6-2.4); Phosphorus, Blood 5.3 mg/dL (2.5-4.9); Potassium, Blood 4.6 mmol/L (3.5-5.5); Sodium, Blood 131 mmol/L (136-145)
--- NOTE | 2019-11-21 08:00 | NUR ---
PT PLEASANT COOP A/O. DENIES PAIN. STATES LITE NUMBNESS IN HANDS, BUT STATES IS NORMAL. H/R REG, NO MURMER NOTED. IS NOTABLY JOSIE. HAS PACER LUCW. STATES KICKS IN ABOUT 45. NO TELE. LUNGS CLEAR, RESP EASY, UNLABORED. ON R/A. BT X4 LAST BM TODAY. ASCITES LARGE FIRM ABD. PENDING PERICENTESIS THIS AM. PT STATES OLIGURIC,BUT DOES URINATE SOME. DIALYSIS REGULARLY. FISTULA SHALONDA. PT STATES DIALYSIS LAST 2 DAYS HERE, BUT NOT EXPECTED TODAY. INDEPENDANT IN ROOM. BED IN LOW POSITION, CALL LITE IN REACH, CALLS APPROP.
--- NOTE | 2019-11-21 10:50 | NUR ---
PT BACK FROM PARACENTISIS, 7.[address] WRIGHT. ORDERS FOR 25 GM ALBUMIN X1 NOW
--- NOTE | 2019-11-21 11:11 | NUR ---
SAW COMMENT IN PARACENTISIS ORDER FOR ALBUMIN X2. SPOKE TO DR CHANDLER SY ALBUMIN. OKAY ONE 25 GM ALBUMIN IF BP >110. IS 137/57 AFTER PROCEDURE. ORDERS FOR ONE
--- NOTE | 2019-11-21 17:30 | NUR ---
PT C/O CHEST PRESSURE MAYBE 5-6/ 10. REQUEST NITRO. GAVE ONE S/L BP 146/66 P 51 O2 97. PT RESTING SITTING IN BED.
--- NOTE | 2019-11-21 17:38 | NUR ---
PT STATES MOSTLLY BACK TO NORMAL. PAIN GONE NOW. DENIES SWEATING, PERSP. DIZZINESS. ADMITS TO OCCATIONAL GERD SYMPTOMS. VSS.
--- NOTE | 2019-11-21 18:24 | NUR ---
1739 CALLED TO UPDATE. HE ORDERED EKG STAT, PLACE TELE. PT HAS PACER. KICKS IN AT 40. 1814 TELE RECEIVED AND PLACED. REPORTED EKG TO DR WRIGHT. NONEW ORDERS.
--- NOTE | 2019-11-21 19:32 | NUR ---
PT PLEASANT TODAY. DID HAVE HEADACHE TODAY. AFTER DISCUSSION, STATES DRINKS COFFEE ALL DAY ABOUT 3 POTS DAILY. HAS HAD ONLY ONE CUP THIS AM. OFFERED LARGE CUP COFFEE. AND TYLENOL. H/A FROM 7 JOSE 1-2. SECOND COFFEE RESOLVED. EXPLAINED IS COMMON. PLEASE ASK FOR COFFEE. WE CAN HELP. DISCUSSED WITH DR. DICKENS TO CONTINUE TYLENOL AN COFFEE. PT STATES HAND SWELLING AND PAIN MUCH IMPROVED. NO NEW CONCERNS BED IN LOW POSITION, CALL LITE IN REACH, CALLS APROP
--- NOTE | 2019-11-21 19:38 | NUR ---
PT REMAINS QUITE PLEASANT AND TALKATIVE TODAY. DID HAVE 7.5 LITERS REMOVED FROM PERICENTESIS TODAY. 25 GM ALBUMIN GIVEN. NO BLEEDING NOTED AT SITE. PT HAD CHEST PAIN EVENT TODAY. TREATED WITH NITRO. RESOLVED. DISCUSSED WITH DR TAPIA. TELE ORDERED AND PLACED. EKG STAT TAKEN AND CALLEDTO DR WRIGHT. NO OTHER ORDERS. PT DOES HAVE PACER AND IS SET AT 40 PER PT. NO OTHER CONCERNS AT THIS TIME. BED IN LOW POSITION, CALL LITE IN REACH CALLS APPROP
[2019-11-22 04:53] LABS: Hematocrit 32.6 % (37.0-53.0); Hemoglobin 10.5 g/dL (13.5-17.5)
[2019-11-22 05:11] LABS: Albumin, Blood 2.4 g/dL (3.4-5.0); Anion Gap 10 mmol/L (6-16); Blood Urea Nitrogen 86 mg/dL (8-24); Bun/Creatinine Ratio 12.7 (12.0-20.0); CO2, Blood 29 mmol/L (21-32); Calcium, Blood 8.3 mg/dL (8.5-10.1); Chloride, Blood 91 mmol/L (98-108); Creatinine, Blood 6.77 mg/dL (0.60-1.20); Glomerular Filtration Rate 9 (60-); Glucose, Blood 153 mg/dL (70-99); Magnesium, Blood 2.6 mg/dL (1.6-2.4); Phosphorus, Blood 5.1 mg/dL (2.5-4.9); Potassium, Blood 4.9 mmol/L (3.5-5.5); Sodium, Blood 130 mmol/L (136-145)
--- NOTE | 2019-11-22 07:37 | NUR ---
SUMMARY PT HAD NO ISSUES NOTED. PT DENIED ANY CP OR SOB. PT UP LATE WATCHING TV. DAUGHTER CALLED AND REQUESTED A UPDATE BY PROVIDER TODAY. PT HAS SLEPT WELL W/ CPAP. PT INDEPENDANT IN ROOM AND CALL LIGHT IN REACH.
--- NOTE | 2019-11-22 15:22 | NUR ---
Echocardiogram completed.
--- NOTE | 2019-11-22 20:05 | NUR ---
SHIFT SUMAMRY: NO ACUTE CHANGES TO REPORT THIS SHIFT. PT A&O; CALM AND COOPERATIVE WITH CARE. NO C/O PAIN THIS SHIFT. STRESS TEST PART 1 COMPLETED THIS SHIFT; PT NPO AT MIDNIGHT FOR TEST PART 2 TOMORROW 11/22 @ 0900. REPORT GIVEN TO ONCOMING RN.
--- NOTE | 2019-11-23 02:01 | NUR ---
PT RESTING COMFORTABLY IN BED; NPO SINCE MIDNIGHT FOR HEART STRESS TEST AM.
--- NOTE | 2019-11-23 03:05 | NUR ---
SHIFT SUMMARY: 74 Y/O MALE PATIENT RESTED COMFORTABLY ALL SHIFT; PT NPO AFTER MIDNIGHT FOR HEART STRESS TEST THIS AM; PT ALERT AND ORIENTED X 3 WITH SLIGHT CONFUSION NOTED MIDDLE OF NIGHT, ABLE TO FOLLOW ALL SIMPLE VERBAL COMMANDS; C/O BACK PAIN RATED 8/10 WITH FENTANYL 25MCG IVP X 1 GIVEN WITH RELIEF FELT; PT WORE BIPAP THROUGHOUT ENTIRE SHIFT; DENIES NAUSEA; BED LOW POSITION WITH CALL LIGHT AT SIDE.
--- NOTE | 2019-11-23 17:57 | NUR ---
Shift Summary A/Ox3. Pleasant and cooperative with care. Patient has been asking for double servings of food and extra fluids to drink. Education provided RE ESRD and risk for volume overload if fluids are not restricted. Patient is moderately agreeable, requires frequent reminders. Independent in room c cane. Denies pain. Tele: Paced 50. Dialysis session and stress test completed today, tolerated both procedures well. Appetite is obviously great. Calls appropriately and make needs known. Will continue to monitor.
--- NOTE | 2019-11-24 04:25 | NUR ---
SHIFT SUMMARY PT HAS HAD NO ACUTE CHANGES THIS SHFIT, MEDICATED 1X FOR CHRONIC BACK PAIN 11/14 WHICH WAS RELIEVED W/25 MCG FENT, PT CONT TO REQ SNACKS UNTIL FALLING ASLEEP THEN AWOKE @ 0245 REQ SNACKS & DRINKS; PT WAS REMINDED OF DIETARY RESTRICTIONS BUT INSISTED HE WAS HUNGRY, PT ATE SMALL SNACK THEN RETURNED TO BED @ 0400. PT SLEEPING AT THIS TIME, CALL LIGHT IN REACH, WILL CONT TO MONITOR UNTIL REPORT GIVEN TO DAY RN.
--- NOTE | 2019-11-24 17:52 | NUR ---
Shift Summary Paracentesis completed today followed by Albumin infusion, 3.3 L removed. Patient tolerating procedure well. Medicated for 7/10 back/hip pain per emar with good results. VSS, afebrile. Tele: Paced 45. Independent in room, frequent snacks provided through out the day. Calls appropriately. Patient states he is ready to go home. No acute concerns. Will continue to monitor.
--- NOTE | 2019-11-24 22:46 | NUR ---
2100 PT SITTING IN CHAIR AT BEDSIDE. REPORTS PAIN IN NECK, SHOULDERS, AND R SIDE. GAVE ULTRAM, WILL EVAL FOR EFFECT. NO OTHER APPARENT SIGNS OF DISTRESS. CALL LIGHT IS IN REACH. BS WAS 157. TELE 100% VENTRICULARLY PACED AT 51, DOES GO DOWN TO MID TO HIGH 40'S BUT PER REPORT THAT IS NORMAL FOR THIS PT.
--- NOTE | 2019-11-24 23:39 | NUR ---
PT JUST FINISHED USING BATHROOM. SITE SUPERVISOR DOING BLADDER SCAN ON PT NOW. PT DENIES NEED FOR ANYTHING AT THIS TIME. NO APPARENT SIGNS OF DISTRESS. CALL LIGHT IS IN REACH.
--- NOTE | 2019-11-25 01:47 | NUR ---
PT SITTING IN BEDSIDE CHAIR, GOT 1/2 TURKEY SANDWICH AND 1 VANILLA PUDDING, PT ALSO GOT 1 CUP COFFEE. NO OTHER APPARENT SIGNS OF DISTRESS. CALL LIGHT IS IN REACH.
--- NOTE | 2019-11-25 03:37 | NUR ---
PT LYING IN BED, WAKES EASILY, NO APPARENT SIGNS OF DISTRESS. CALL LIGHT IS IN REACH.
--- NOTE | 2019-11-25 03:37 | NUR ---
PT IS AAO X 4, ON RA. REPORTS PAIN IN NECK, SHOULDERS, R SIDE. GOT ULTRAM. BS WAS 157. TELE 100% VENTRICULARLY PACED AT 51, ALSO GOES DOWN TO MID TO HIGH 40'S, THIS IS NORMAL FOR THIS PT PER THEIR HISTORY. CONT BIOX IS ON.
[2019-11-25 05:08] LABS: Hematocrit 35.7 % (37.0-53.0); Hemoglobin 11.1 g/dL (13.5-17.5)
[2019-11-25 05:28] LABS: Albumin, Blood 2.6 g/dL (3.4-5.0); Anion Gap 6 mmol/L (6-16); Blood Urea Nitrogen 80 mg/dL (8-24); Bun/Creatinine Ratio 12.9 (12.0-20.0); CO2, Blood 31 mmol/L (21-32); Calcium, Blood 8.2 mg/dL (8.5-10.1); Chloride, Blood 93 mmol/L (98-108); Creatinine, Blood 6.22 mg/dL (0.60-1.20); Glomerular Filtration Rate 9 (60-); Glucose, Blood 156 mg/dL (70-99); Magnesium, Blood 2.7 mg/dL (1.6-2.4); Phosphorus, Blood 5.2 mg/dL (2.5-4.9); Potassium, Blood 5.5 mmol/L (3.5-5.5); Sodium, Blood 130 mmol/L (136-145)
--- NOTE | 2019-11-25 05:40 | NUR ---
PT SITTING IN BEDSIDE CHAIR, WATCHING TV. NO APPARENT SIGNS OF DISTRESS. CALL LIGHT IS IN REACH. NO OTHER CHANGES THIS SHIFT.
--- NOTE | 2019-11-25 14:48 | NUR ---
Pt. reports doing fine encouraged pt. and prayed for pt.
--- NOTE | 2019-11-25 16:55 | NUR ---
Discharge Summary Discharge to home. Discharge paperwork reviewed with patient and daughter at bedside. No questions at this time. IV removed, WNL. No new meds. Referral completed. Personal belongings sent home with patient. Escorted by FASHION DESIGNER via w/c, transported by daughter via personal vehicle. Hard script of Ultram given to patient. Hemodialysis completed today, tolerated procedure well. Up independently with cane, had a shower today. Able to complete all care independently. Frequent snacks given t/o day per patient request. Reviewed possibility of limiting fluids at home with daughter, she was agreeable and had stated fluid restrictions will be more strict this time around. No acute concerns.
== END 2019-11-25 16:20 | disposition home or self-care (01) | DRG 291 ==
LOC: ER 04:46 → ERHOLD 04:47 → ICUW 04:47 → ERHOLD 04:47 → ICUW 10:26 → MEDS 11-20 21:27 → ENPENDDIS 11-25 10:14 → MEDS 11-25 16:20
PROVIDERS: Emergency Medicine; Internal Medicine Nephrology; Student in an Organized Health Care Education/Training Program; ADMIT Internal Medicine
PROC: 0W9G30Z Drainage of Peritoneal Cavity with Drainage Device, Percutaneous Approach (ICD-10-PCS; principal; 2019-11-20)
DX: I11.0 Hypertensive heart disease with heart failure (principal); N18.6 End stage renal disease; R18.8 Other ascites; E87.1 Hypo-osmolality and hyponatremia; I50.32 Chronic diastolic (congestive) heart failure; Z95.1 Presence of aortocoronary bypass graft; Z95.0 Presence of cardiac pacemaker; E11.22 Type 2 diabetes mellitus with diabetic chronic kidney disease; Z79.4 Long term (current) use of insulin; I25.10 Atherosclerotic heart disease of native coronary artery without angina pectoris; E66.9 Obesity, unspecified; E88.09 Other disorders of plasma-protein metabolism, not elsewhere classified; G47.33 Obstructive sleep apnea (adult) (pediatric); Z99.2 Dependence on renal dialysis; Z68.32 Body mass index [BMI] 32.0-32.9, adult
CPT/HCPCS: 36415; 49083; 71045; 74176; 76705; 78452; 80053; 80069; 82042; 82550; 82947; 83615; 83735; 83986; 84100; 84132; 84157; 84478; 84484; 85014; 85018; 85025; 85610; 87070; 87075; 87205; 88108; 88305; 88342; 89051; 93005; 93010; 93017; 93306; 94762; 96372; 96374; 96376; 99285-25; A9270; A9270-GY; A9500; G0257; G0378; J1644; J2785; J3010; J7050; P9046

== ENCOUNTER 2019-12-23 13:14 | Day surgery (SDC) | payer OTHER, MEDICARE ==
[~2019-12-23 13:14] MED LIST changes: +ENTRESTO 24 MG1 EACH PO; +PANT40 PO
== END 2019-12-23 23:00 | disposition home or self-care (01) ==
LOC: US 13:14
DX: R18.8 Other ascites (principal)
CPT/HCPCS: 49083

== ENCOUNTER 2020-01-31 00:26 | Day surgery (SDC) | payer OTHER, MEDICARE | END 2020-01-31 17:27 | disposition home or self-care (01) | LOC: ATC 00:26 → US 00:26 → ATC 17:27 | DX: R18.8 Other ascites (principal); I50.22 Chronic systolic (congestive) heart failure; N18.6 End stage renal disease; Z99.2 Dependence on renal dialysis; E66.9 Obesity, unspecified; R07.9 Chest pain, unspecified; I25.10 Atherosclerotic heart disease of native coronary artery without angina pectoris; Z79.82 Long term (current) use of aspirin; Z79.899 Other long term (current) drug therapy; Z79.4 Long term (current) use of insulin; N40.0 Benign prostatic hyperplasia without lower urinary tract symptoms | CPT/HCPCS: 49083; 96365; P9046 ==

== ENCOUNTER 2020-02-10 13:31 | Day surgery (SDC) | payer OTHER, MEDICARE ==
--- NOTE | 2020-02-10 14:57 | NUR ---
PT ARRIVED TO [facility]. PER US, [address] ORDERS, ALBUMIN IF MORE THAN 5 LITERS REMOVED. PT TEACHING ON THIS, VERBALIZES UNDERSTANDING AND IS CALLING DAUGHTER TO PICK HIM UP. NOT SEEN IN CLINIC TODAY
== END 2020-02-10 23:00 | disposition home or self-care (01) ==
LOC: US 13:31
DX: R18.8 Other ascites (principal); I13.2 Hypertensive heart and chronic kidney disease with heart failure and with stage 5 chronic kidney disease, or end stage renal disease; I50.22 Chronic systolic (congestive) heart failure; E11.22 Type 2 diabetes mellitus with diabetic chronic kidney disease; N18.6 End stage renal disease; D63.1 Anemia in chronic kidney disease; I25.10 Atherosclerotic heart disease of native coronary artery without angina pectoris; N40.0 Benign prostatic hyperplasia without lower urinary tract symptoms; G47.30 Sleep apnea, unspecified; I48.0 Paroxysmal atrial fibrillation; E66.9 Obesity, unspecified; Z68.42 Body mass index [BMI] 45.0-49.9, adult; Z99.2 Dependence on renal dialysis; Z79.82 Long term (current) use of aspirin; Z79.4 Long term (current) use of insulin; Z79.51 Long term (current) use of inhaled steroids; Z79.899 Other long term (current) drug therapy; Z95.1 Presence of aortocoronary bypass graft; Z88.8 Allergy status to other drugs, medicaments and biological substances
CPT/HCPCS: 49083

== ENCOUNTER 2020-02-21 13:37 | Day surgery (SDC) | payer OTHER, MEDICARE | END 2020-02-21 22:44 | disposition home or self-care (01) | LOC: US 13:37 | DX: R18.8 Other ascites (principal) | CPT/HCPCS: 49083 ==

== ENCOUNTER 2020-03-02 13:35 | Day surgery (SDC) | payer OTHER, MEDICARE | END 2020-03-02 15:43 | disposition home or self-care (01) | LOC: US 13:35 → ATC 13:35 → US 14:00 → ATC 15:43 | DX: R18.8 Other ascites (principal); I13.2 Hypertensive heart and chronic kidney disease with heart failure and with stage 5 chronic kidney disease, or end stage renal disease; E11.22 Type 2 diabetes mellitus with diabetic chronic kidney disease; N18.6 End stage renal disease; I50.22 Chronic systolic (congestive) heart failure; D63.1 Anemia in chronic kidney disease; I25.10 Atherosclerotic heart disease of native coronary artery without angina pectoris; N40.0 Benign prostatic hyperplasia without lower urinary tract symptoms; G47.30 Sleep apnea, unspecified; I48.0 Paroxysmal atrial fibrillation; E66.9 Obesity, unspecified; Z68.41 Body mass index [BMI] 40.0-44.9, adult; Z99.2 Dependence on renal dialysis; Z79.51 Long term (current) use of inhaled steroids; Z79.4 Long term (current) use of insulin; Z79.82 Long term (current) use of aspirin; Z79.899 Other long term (current) drug therapy; Z95.1 Presence of aortocoronary bypass graft; Z91.048 Other nonmedicinal substance allergy status; Z51.5 Encounter for palliative care | CPT/HCPCS: 49083; 96365; P9046 ==

== ENCOUNTER 2020-03-13 00:43 | Day surgery (SDC) | payer OTHER, MEDICARE | END 2020-03-13 23:12 | disposition home or self-care (01) | LOC: US 00:43 | DX: R18.8 Other ascites (principal) | CPT/HCPCS: 49083 ==

== ENCOUNTER 2020-03-31 13:48 | Day surgery (SDC) | payer OTHER, MEDICARE | END 2020-03-31 23:34 | disposition home or self-care (01) | LOC: US 13:48 | DX: R18.8 Other ascites (principal) | CPT/HCPCS: 49083 ==

== ENCOUNTER 2020-04-13 13:45 | Day surgery (SDC) | payer OTHER, MEDICARE | END 2020-04-13 15:57 | disposition home or self-care (01) | LOC: US 13:45 → ATC 13:45 → US 14:00 → ATC 15:57 | DX: R18.8 Other ascites (principal); I13.2 Hypertensive heart and chronic kidney disease with heart failure and with stage 5 chronic kidney disease, or end stage renal disease; E11.22 Type 2 diabetes mellitus with diabetic chronic kidney disease; N18.6 End stage renal disease; I50.22 Chronic systolic (congestive) heart failure; D63.1 Anemia in chronic kidney disease; I25.10 Atherosclerotic heart disease of native coronary artery without angina pectoris; N40.0 Benign prostatic hyperplasia without lower urinary tract symptoms; G47.30 Sleep apnea, unspecified; I48.0 Paroxysmal atrial fibrillation; E66.9 Obesity, unspecified; Z79.82 Long term (current) use of aspirin; Z79.4 Long term (current) use of insulin; Z79.899 Other long term (current) drug therapy; Z91.048 Other nonmedicinal substance allergy status; Z95.1 Presence of aortocoronary bypass graft; Z95.0 Presence of cardiac pacemaker; Z99.2 Dependence on renal dialysis; Z79.51 Long term (current) use of inhaled steroids | CPT/HCPCS: 49083; 96365; P9046 ==

== ENCOUNTER 2020-04-24 00:34 | Day surgery (SDC) | payer OTHER, MEDICARE ==
[2020-04-24 13:46] LABS: International Normalized Ratio 1.16; Prothrombin Time Results 12.3 Sec (9.7-11.5)
== END 2020-04-24 23:35 | disposition home or self-care (01) ==
LOC: US 00:34
PROVIDERS: Radiology Diagnostic Radiology
DX: R18.8 Other ascites (principal); D64.9 Anemia, unspecified; Z79.82 Long term (current) use of aspirin; Z79.4 Long term (current) use of insulin; Z79.899 Other long term (current) drug therapy; Z91.048 Other nonmedicinal substance allergy status
CPT/HCPCS: 49083; 85610; 85730

== ENCOUNTER 2020-05-04 00:19 | Day surgery (SDC) | payer OTHER, MEDICARE | END 2020-05-04 15:54 | disposition home or self-care (01) | LOC: ATC 00:19 → US 00:19 → ATC 15:54 | DX: R18.8 Other ascites (principal); I13.2 Hypertensive heart and chronic kidney disease with heart failure and with stage 5 chronic kidney disease, or end stage renal disease; E11.22 Type 2 diabetes mellitus with diabetic chronic kidney disease; N18.6 End stage renal disease; I50.22 Chronic systolic (congestive) heart failure; D63.1 Anemia in chronic kidney disease; I48.0 Paroxysmal atrial fibrillation; I25.10 Atherosclerotic heart disease of native coronary artery without angina pectoris; N40.0 Benign prostatic hyperplasia without lower urinary tract symptoms; G47.30 Sleep apnea, unspecified; E66.9 Obesity, unspecified; Z79.82 Long term (current) use of aspirin; Z79.4 Long term (current) use of insulin; Z79.51 Long term (current) use of inhaled steroids; Z79.899 Other long term (current) drug therapy; Z99.2 Dependence on renal dialysis; Z95.1 Presence of aortocoronary bypass graft; Z91.048 Other nonmedicinal substance allergy status | CPT/HCPCS: 49083; P9046 ==

== ENCOUNTER 2020-05-15 01:07 | Day surgery (SDC) | payer OTHER, MEDICARE | END 2020-05-15 16:25 | disposition home or self-care (01) | LOC: ATC 01:07 → US 01:07 → ATC 16:25 | DX: R18.8 Other ascites (principal); I13.2 Hypertensive heart and chronic kidney disease with heart failure and with stage 5 chronic kidney disease, or end stage renal disease; E11.22 Type 2 diabetes mellitus with diabetic chronic kidney disease; N18.6 End stage renal disease; I50.22 Chronic systolic (congestive) heart failure; D63.1 Anemia in chronic kidney disease; I25.10 Atherosclerotic heart disease of native coronary artery without angina pectoris; N40.0 Benign prostatic hyperplasia without lower urinary tract symptoms; G47.30 Sleep apnea, unspecified; E66.9 Obesity, unspecified; I48.0 Paroxysmal atrial fibrillation; Z95.0 Presence of cardiac pacemaker; Z79.4 Long term (current) use of insulin; Z79.82 Long term (current) use of aspirin; Z68.41 Body mass index [BMI] 40.0-44.9, adult; Z99.2 Dependence on renal dialysis; Z79.899 Other long term (current) drug therapy; Z91.048 Other nonmedicinal substance allergy status; Z95.1 Presence of aortocoronary bypass graft | CPT/HCPCS: 49083; P9041; P9046 ==

== ENCOUNTER 2020-05-25 00:17 | Day surgery (SDC) | payer OTHER, MEDICARE ==
[~2020-05-25 00:17] MED LIST changes: +ASPIR 8181 MG PO; -LO-DOSE ASPIRIN81 MG PO; +NOVOLOG FL100 UNIT/3 SC; -Novolog100 UNIT/1 SC; +VITAMIN D31000 UNI1 PO; -VITAMIN D31000 UNI2 PO
[2020-09-08] MEDS ORDERED: MELA3 PO (19:24)
[2020-09-08] MEDS ORDERED: TRAZ50 PO (19:24)
== END 2020-05-25 16:05 | disposition home or self-care (01) ==
LOC: US 00:17 → ATC 00:17 → US 14:00 → ATC 16:05
DX: R18.8 Other ascites (principal); I13.2 Hypertensive heart and chronic kidney disease with heart failure and with stage 5 chronic kidney disease, or end stage renal disease; N18.6 End stage renal disease; I50.22 Chronic systolic (congestive) heart failure; E11.22 Type 2 diabetes mellitus with diabetic chronic kidney disease; I25.10 Atherosclerotic heart disease of native coronary artery without angina pectoris; G47.30 Sleep apnea, unspecified; N40.0 Benign prostatic hyperplasia without lower urinary tract symptoms; I48.0 Paroxysmal atrial fibrillation; E66.9 Obesity, unspecified; Z99.2 Dependence on renal dialysis; Z95.1 Presence of aortocoronary bypass graft; Z79.01 Long term (current) use of anticoagulants; Z95.0 Presence of cardiac pacemaker; Z79.82 Long term (current) use of aspirin; Z79.4 Long term (current) use of insulin
CPT/HCPCS: 49083; 96365; P9041; P9046

== ENCOUNTER 2020-06-05 00:22 | Day surgery (SDC) | payer MEDICARE, OTHER ==
[2020-09-08] MEDS ORDERED: TRAZ50 PO (19:24)
[2020-09-08] MEDS ORDERED: MELA3 PO (19:24)
== END 2020-06-05 16:22 | disposition home or self-care (01) ==
LOC: ATC 00:22 → US 00:22 → ATC 16:22
DX: R18.8 Other ascites (principal); E11.22 Type 2 diabetes mellitus with diabetic chronic kidney disease; N18.6 End stage renal disease; I50.9 Heart failure, unspecified; I25.10 Atherosclerotic heart disease of native coronary artery without angina pectoris; G47.30 Sleep apnea, unspecified; E66.9 Obesity, unspecified; D64.9 Anemia, unspecified; Z99.2 Dependence on renal dialysis; Z79.4 Long term (current) use of insulin
CPT/HCPCS: 49083; 96365; P9041; P9046

== ENCOUNTER 2020-06-15 00:29 | Day surgery (SDC) | payer OTHER, MEDICARE ==
[2020-09-08] MEDS ORDERED: TRAZ50 PO (19:24)
[2020-09-08] MEDS ORDERED: MELA3 PO (19:24)
== END 2020-06-15 16:49 | disposition home or self-care (01) ==
LOC: ATC 00:29 → US 00:29 → ATC 16:49
DX: R18.8 Other ascites (principal); I25.10 Atherosclerotic heart disease of native coronary artery without angina pectoris; N18.6 End stage renal disease; Z99.2 Dependence on renal dialysis; G47.30 Sleep apnea, unspecified; D64.9 Anemia, unspecified; E11.22 Type 2 diabetes mellitus with diabetic chronic kidney disease; I13.2 Hypertensive heart and chronic kidney disease with heart failure and with stage 5 chronic kidney disease, or end stage renal disease; I50.22 Chronic systolic (congestive) heart failure; Z79.4 Long term (current) use of insulin; Z95.1 Presence of aortocoronary bypass graft; Z79.82 Long term (current) use of aspirin
CPT/HCPCS: 49083; 96365; P9046

== ENCOUNTER 2020-06-26 00:57 | Day surgery (SDC) | payer OTHER, MEDICARE ==
[2020-09-08] MEDS ORDERED: TRAZ50 PO (19:24)
[2020-09-08] MEDS ORDERED: MELA3 PO (19:24)
== END 2020-06-26 16:44 | disposition home or self-care (01) ==
LOC: ATC 00:57 → US 00:57 → ATC 16:44
DX: R18.8 Other ascites (principal); I13.2 Hypertensive heart and chronic kidney disease with heart failure and with stage 5 chronic kidney disease, or end stage renal disease; E11.22 Type 2 diabetes mellitus with diabetic chronic kidney disease; N18.6 End stage renal disease; I50.9 Heart failure, unspecified; I25.10 Atherosclerotic heart disease of native coronary artery without angina pectoris; G47.30 Sleep apnea, unspecified; E66.9 Obesity, unspecified; I48.0 Paroxysmal atrial fibrillation; Z79.82 Long term (current) use of aspirin; Z79.4 Long term (current) use of insulin; Z99.2 Dependence on renal dialysis; Z95.1 Presence of aortocoronary bypass graft; Z95.0 Presence of cardiac pacemaker
CPT/HCPCS: 49083; 96365; P9046

== ENCOUNTER 2020-07-06 00:38 | Day surgery (SDC) | payer OTHER, MEDICARE ==
[2020-09-08] MEDS ORDERED: TRAZ50 PO (19:24)
[2020-09-08] MEDS ORDERED: MELA3 PO (19:24)
== END 2020-07-06 15:59 | disposition home or self-care (01) ==
LOC: US 00:38 → ATC 00:38 → US 14:00 → ATC 15:59
DX: R18.8 Other ascites (principal); I13.2 Hypertensive heart and chronic kidney disease with heart failure and with stage 5 chronic kidney disease, or end stage renal disease; E11.22 Type 2 diabetes mellitus with diabetic chronic kidney disease; N18.6 End stage renal disease; I50.22 Chronic systolic (congestive) heart failure; I25.10 Atherosclerotic heart disease of native coronary artery without angina pectoris; E66.9 Obesity, unspecified; G47.30 Sleep apnea, unspecified; I48.0 Paroxysmal atrial fibrillation; Z79.82 Long term (current) use of aspirin; Z79.4 Long term (current) use of insulin; Z95.1 Presence of aortocoronary bypass graft; Z99.2 Dependence on renal dialysis; Z95.0 Presence of cardiac pacemaker
CPT/HCPCS: 49083; 96365; P9041; P9046

== ENCOUNTER 2020-07-17 00:45 | Day surgery (SDC) | payer OTHER, MEDICARE ==
[2020-09-08] MEDS ORDERED: TRAZ50 PO (19:24)
[2020-09-08] MEDS ORDERED: MELA3 PO (19:24)
== END 2020-07-17 15:56 | disposition home or self-care (01) ==
LOC: US 00:45
DX: R18.8 Other ascites (principal)
CPT/HCPCS: 49083; 96365; P9041; P9046

== ENCOUNTER 2020-07-27 14:33 | Day surgery (SDC) | payer OTHER, MEDICARE ==
[2020-09-08] MEDS ORDERED: MELA3 PO (19:24)
[2020-09-08] MEDS ORDERED: TRAZ50 PO (19:24)
== END 2020-07-27 15:46 | disposition home or self-care (01) ==
LOC: ATC 14:33
DX: R18.8 Other ascites (principal); E11.22 Type 2 diabetes mellitus with diabetic chronic kidney disease; I12.0 Hypertensive chronic kidney disease with stage 5 chronic kidney disease or end stage renal disease; N18.6 End stage renal disease; E66.9 Obesity, unspecified; Z99.2 Dependence on renal dialysis; Z79.4 Long term (current) use of insulin; Z86.79 Personal history of other diseases of the circulatory system; Z95.1 Presence of aortocoronary bypass graft
CPT/HCPCS: 49083; 96365; P9041; P9046

== ENCOUNTER 2020-08-07 13:26 | Day surgery (SDC) | payer OTHER, MEDICARE ==
[2020-09-08] MEDS ORDERED: TRAZ50 PO (19:24)
[2020-09-08] MEDS ORDERED: MELA3 PO (19:24)
== END 2020-08-07 16:15 | disposition home or self-care (01) ==
LOC: US 13:26 → ATC 13:26 → US 14:00 → ATC 16:15
DX: R18.8 Other ascites (principal); I13.2 Hypertensive heart and chronic kidney disease with heart failure and with stage 5 chronic kidney disease, or end stage renal disease; E11.22 Type 2 diabetes mellitus with diabetic chronic kidney disease; N18.6 End stage renal disease; I50.22 Chronic systolic (congestive) heart failure; I25.10 Atherosclerotic heart disease of native coronary artery without angina pectoris; G47.30 Sleep apnea, unspecified; E66.9 Obesity, unspecified; Z79.82 Long term (current) use of aspirin; Z79.4 Long term (current) use of insulin; Z95.1 Presence of aortocoronary bypass graft; I48.0 Paroxysmal atrial fibrillation; Z95.0 Presence of cardiac pacemaker; Z99.2 Dependence on renal dialysis
CPT/HCPCS: 49083; 96365; P9046

== ENCOUNTER 2020-08-17 08:24 | Day surgery (SDC) | payer OTHER, MEDICARE ==
[~2020-08-17 08:24] MED LIST changes: -ASPIR 8181 MG PO; +LO-DOSE ASPIRIN81 MG PO; -NOVOLOG FL100 UNIT/3 SC; +Novolog100 UNIT/1 SC; -VITAMIN D31000 UNI1 PO; +VITAMIN D31000 UNI2 PO
== END 2020-08-17 11:07 | disposition home or self-care (01) ==
LOC: US 08:24 → ATC 08:24 → US 09:00 → ATC 11:07 → US 14:00
DX: R18.8 Other ascites (principal); I13.2 Hypertensive heart and chronic kidney disease with heart failure and with stage 5 chronic kidney disease, or end stage renal disease; I50.22 Chronic systolic (congestive) heart failure; E11.22 Type 2 diabetes mellitus with diabetic chronic kidney disease; N18.6 End stage renal disease; I25.10 Atherosclerotic heart disease of native coronary artery without angina pectoris; I48.0 Paroxysmal atrial fibrillation; Z95.1 Presence of aortocoronary bypass graft; Z79.4 Long term (current) use of insulin; Z99.2 Dependence on renal dialysis; Z95.0 Presence of cardiac pacemaker
CPT/HCPCS: 49083; 96365; P9046

== ENCOUNTER 2020-08-20 05:56 | Observation (INO) | payer OTHER, MEDICARE ==
[~2020-08-20] VITALS: Ht 175.3 cm; Wt 99.8 kg
[~2020-08-20 05:56] MED LIST changes: +ASPIR 8181 MG PO; -LO-DOSE ASPIRIN81 MG PO; +NOVOLOG FL100 UNIT/3 SC; -Novolog100 UNIT/1 SC; +VITAMIN D31000 UNI1 PO; -VITAMIN D31000 UNI2 PO
[2020-08-20 06:20] LABS: BASOPHILS ABSOLUTE AUTO 0.04 K/mm3 (0.00-0.23); BASOPHILS PERCENT AUTO 1 % (0-2); EOSINOPHILS ABSOLUTE AUTO 0.14 K/mm3 (0.00-0.68); EOSINOPHILS PERCENT AUTO 2 % (0-6); Hematocrit 36.8 % (37.0-53.0); IMMATURE GRAN ABSOLUTE AUTO 0.01 K/mm3 (0.00-0.10); IMMATURE GRAN PERCENT AUTO 0 % (0-1); LYMPHOCYTES ABSOLUTE AUTO 0.51 K/mm3 (0.84-5.20); LYMPHOCYTES PERCENT AUTO 9 % (21-46); MONOCYTES ABSOLUTE AUTO 0.75 K/mm3 (0.16-1.47); MONOCYTES PERCENT AUTO 13 % (4-13); Mean Corpuscular HGB 33.3 pg (26.0-34.0); Mean Corpuscular HGB Conc 32.6 g/dL (31.5-36.5); Mean Corpuscular Volume 102 fL (80-100); Mean Platelet Volume 10.6 fL (9.1-12.4); NEUTROPHILS ABSOLUTE AUTO 4.48 K/mm3 (1.96-9.15); NEUTROPHILS PERCENT AUTO 76 % (41-73); Platelet Count 152 K/mm3 (150-400); RDW Coefficient Variation 13.8 % (11.7-14.2); RDW Standard Deviation 52.3 fL (35.1-46.3); White Blood Cell Count 5.93 K/mm3 (4.00-11.30)
[2020-08-20 06:48] LABS: Troponin I 0.077 ng/mL (0.000-0.040)
[2020-08-20 06:49] LABS: Albumin, Blood 3.2 g/dL (3.4-5.0); Albumin/Globulin Ratio 0.8 (0.8-1.8); Bilirubin, Total 1.1 mg/dL (0.1-1.0); Bun/Creatinine Ratio 16.4 (12.0-20.0); Calcium, Blood 8.5 mg/dL (8.5-10.1); Creatinine, Blood 4.81 mg/dL (0.60-1.20); Globulin, Blood 4.2 g/dL (2.2-4.0); Potassium, Blood 4.2 mmol/L (3.5-5.5); Total Protein, Blood 7.4 g/dL (6.4-8.2)
[2020-08-20] MEDS ORDERED: BUPR150ER PO (07:03)
[2020-08-20] MEDS ORDERED: BUME2 PO (07:03)
[2020-08-20] MEDS ORDERED: TRAZ100 PO (07:04)
--- NOTE | 2020-08-20 08:12 | NUR ---
ROUTINE HEMODIALYSIS ORDERED BY DR ARTEAGA FOR PATIENT SOON TRANSFER TO TO FLOOR COMPLETED.
[2020-08-20] MEDS ORDERED: Calcium Acetat667 MG PO (15:13)
[2020-08-20] MEDS ORDERED: ENTRESTO 24 MG1 EAC3 PO (15:14)
[2020-08-20] MEDS ORDERED: ONDA4ODT MM (15:15)
[2020-08-20] MEDS ORDERED: OXYB5 (15:16)
--- NOTE | 2020-08-20 19:38 | NUR ---
SHIFT SUMMARY PT A NEW ADMISSION THIS AFTERNOON. PT HAD DIALYSIS WHEN ARRIVED TO ROOM. NO COMPLAINTS OF PAIN, NAUSEA, SHORTNESS OF BREATH, OR CHEST PAIN. PT HAS GOOD APPETITE. NO ACUTE CHANGES THIS SHIFT. CALL LIGHT IN REACH. REPORT GIVEN TO DELIA KHAN.
--- NOTE | 2020-08-21 04:38 | NUR ---
SHIFT SUMMARY PT UP AND DOWN A LOT THIS EVENING. DID NOT SLEEP MUCH. REQUESTING FREQUENTLY TO TRANSFER FROM THE BED TO THE CHAIR. PT TRANSFERED WITH 1 PERSON ASSIST. CPAP WHILE SLEEPING. FISTULA TO R ARM. NO ACUTE EVENTS THIS EVENING. VITAL SIGNS STABLE. WILL CONTINUE TO MONITOR.
[2020-08-21] MEDS ORDERED: MELATONIN PO (05:27)
[2020-08-21] MEDS ORDERED: OXYB5 PO (05:27)
[2020-08-21 05:31] LABS: Hemoglobin 10.4 g/dL (13.5-17.5)
[2020-08-21 06:03] LABS: Albumin, Blood 2.7 g/dL (3.4-5.0); Anion Gap 7 mmol/L (6-16); Blood Urea Nitrogen 62 mg/dL (8-24); Bun/Creatinine Ratio 13.8 (12.0-20.0); CO2, Blood 31 mmol/L (21-32); Calcium, Blood 8.1 mg/dL (8.5-10.1); Chloride, Blood 100 mmol/L (98-108); Glomerular Filtration Rate 14 (60-); Glucose, Blood 168 mg/dL (70-99); Magnesium, Blood 2.4 mg/dL (1.6-2.4); Potassium, Blood 4.1 mmol/L (3.5-5.5); Sodium, Blood 138 mmol/L (136-145)
--- NOTE | 2020-08-21 14:28 | NUR ---
SUMMARY/DISCHARGE PT DISCHARGED TO HOME WITH HOME HEALTH, COTTON EXPERT ARRANGED HOME HEALTH, PT VERBALIZED UNDERSTANDING OF DISCHARGE INSTRUCTIONS REGARDING MEDS AND FOLLOW UP, PT'S DAUGHTER CALLED TO COME DAY [employer]UL YOUTH SUPERVISOR THE PT, PT TAKEN OUT SAFELY VIA WHEELCHAIR
== END 2020-08-21 14:18 | disposition home health service (06) ==
LOC: ER 05:56 → MEDS 05:57 → ENPENDDIS 08-21 09:51 → MEDS 08-21 14:18
PROVIDERS: Emergency Medicine; Internal Medicine Nephrology; ADMIT Internal Medicine
DX: R53.1 Weakness (principal); I48.0 Paroxysmal atrial fibrillation; E11.22 Type 2 diabetes mellitus with diabetic chronic kidney disease; I13.2 Hypertensive heart and chronic kidney disease with heart failure and with stage 5 chronic kidney disease, or end stage renal disease; I50.22 Chronic systolic (congestive) heart failure; N18.6 End stage renal disease; I25.10 Atherosclerotic heart disease of native coronary artery without angina pectoris; R53.83 Other fatigue; R79.89 Other specified abnormal findings of blood chemistry; J44.9 Chronic obstructive pulmonary disease, unspecified; E66.01 Morbid (severe) obesity due to excess calories; E78.5 Hyperlipidemia, unspecified; G47.33 Obstructive sleep apnea (adult) (pediatric); K21.9 Gastro-esophageal reflux disease without esophagitis; D63.1 Anemia in chronic kidney disease; G47.00 Insomnia, unspecified; M51.37 Other intervertebral disc degeneration, lumbosacral region; M47.814 Spondylosis without myelopathy or radiculopathy, thoracic region; R94.31 Abnormal electrocardiogram [ECG] [EKG]; W06.XXXA Fall from bed, initial encounter; Z95.0 Presence of cardiac pacemaker; Z99.2 Dependence on renal dialysis; Z79.4 Long term (current) use of insulin; Z95.1 Presence of aortocoronary bypass graft; Z66 Do not resuscitate
CPT/HCPCS: 36415; 70450; 71045; 72100; 80053; 80069; 82140; 82947; 83690; 83735; 84484; 85014; 85018; 85025; 93005; 93010; 94660; 94762; 96372; 97162; 97530; 99285-25; A9270; A9270-GY; G0257; G0378; J1644

== ENCOUNTER 2020-10-09 04:44 | Day surgery (SDC) | payer OTHER, MEDICARE ==
[~2020-10-09 04:44] MED LIST changes: +Calcium Acetat667 MG PO; +ENTRESTO 24 MG1 EAC3 PO; +MELA3 PO; +MELATONIN PO; +ONDA4ODT MM; +OXYB5; +OXYB5 PO; +TRAZ50 PO
== END 2020-10-09 17:35 | disposition home or self-care (01) ==
LOC: ATC 04:44 → US 04:44 → ATC 17:35
DX: R18.8 Other ascites (principal); I25.10 Atherosclerotic heart disease of native coronary artery without angina pectoris; I13.2 Hypertensive heart and chronic kidney disease with heart failure and with stage 5 chronic kidney disease, or end stage renal disease; I50.22 Chronic systolic (congestive) heart failure; E11.22 Type 2 diabetes mellitus with diabetic chronic kidney disease; N18.6 End stage renal disease; G47.30 Sleep apnea, unspecified; E66.9 Obesity, unspecified; Z95.1 Presence of aortocoronary bypass graft; Z79.4 Long term (current) use of insulin; Z99.2 Dependence on renal dialysis
CPT/HCPCS: 49083; 96365; P9046

== ENCOUNTER 2020-10-18 18:04 | Inpatient (IN) | payer OTHER, MEDICARE ==
[~2020-10-18] VITALS: Ht 177.8 cm; Wt 110.3 kg
[2020-10-18 18:35] LABS: Calcium, Ionized (POC) 1.02 mmol/L (1.10-1.46); Chloride (POC) 88 mmol/L (98-108); Creatinine (POC) 5.3 mg/dL (0.8-1.3); Glucose (ISTAT POC) 180 mg/dL (70-99); Hemoglobin (POC) 11.2 g/dL (13.5-17.5); Potassium (POC) 4.9 mmol/L (3.5-5.5); Sodium (POC) 133 mmol/L (135-148); Total CO2 (POC) 36 mmol/L (21-32)
[2020-10-18 18:41] LABS: BASOPHILS ABSOLUTE AUTO 0.02 K/mm3 (0.00-0.23); BASOPHILS PERCENT AUTO 0 % (0-2); EOSINOPHILS ABSOLUTE AUTO 0.01 K/mm3 (0.00-0.68); EOSINOPHILS PERCENT AUTO 0 % (0-6); Hematocrit 30.1 % (37.0-53.0); Hemoglobin 9.7 g/dL (13.5-17.5); IMMATURE GRAN ABSOLUTE AUTO 0.05 K/mm3 (0.00-0.10); IMMATURE GRAN PERCENT AUTO 1 % (0-1); LYMPHOCYTES ABSOLUTE AUTO 0.38 K/mm3 (0.84-5.20); LYMPHOCYTES PERCENT AUTO 4 % (21-46); MONOCYTES ABSOLUTE AUTO 1.38 K/mm3 (0.16-1.47); MONOCYTES PERCENT AUTO 15 % (4-13); Mean Corpuscular HGB 33.4 pg (26.0-34.0); Mean Corpuscular HGB Conc 32.2 g/dL (31.5-36.5); Mean Corpuscular Volume 104 fL (80-100); Mean Platelet Volume 10.4 fL (9.1-12.4); NEUTROPHILS ABSOLUTE AUTO 7.36 K/mm3 (1.96-9.15); NEUTROPHILS PERCENT AUTO 80 % (41-73); Platelet Count 169 K/mm3 (150-400); RDW Coefficient Variation 15.7 % (11.7-14.2); RDW Standard Deviation 58.5 fL (35.1-46.3)
[2020-10-18 19:05] LABS: Albumin, Blood 2.7 g/dL (3.4-5.0); Albumin/Globulin Ratio 0.6 (0.8-1.8); Bilirubin, Total 0.8 mg/dL (0.1-1.0); Bun/Creatinine Ratio 12.2 (12.0-20.0); Calcium, Blood 8.7 mg/dL (8.5-10.1); Creatinine, Blood 4.67 mg/dL (0.60-1.20); Globulin, Blood 4.5 g/dL (2.2-4.0); Magnesium, Blood 2.1 mg/dL (1.6-2.4); Potassium, Blood 4.8 mmol/L (3.5-5.5); Total Protein, Blood 7.2 g/dL (6.4-8.2); Troponin I 0.061 ng/mL (0.000-0.040)
[2020-10-18 19:53] LABS: International Normalized Ratio 1.23; Prothrombin Time Results 13.1 Sec (9.7-11.5)
[2020-10-18] MEDS ORDERED: ELIQUIS2.5 MG PO (20:07)
[2020-10-18] MEDS ORDERED: AMLO10 PO (20:07)
[2020-10-18] MEDS ORDERED: SERT50 PO (20:07)
[2020-10-18 22:54] LABS: Source, Urine Catheter
[2020-10-18 22:56] LABS: Blood, Urine 2+ (Neg); Glucose Qualitative, Urine Neg (Neg); Ketones, Urine Neg (Neg); Leukocyte Esterase, Urine 2+ (Neg); Nitrite, Urine Neg (Neg); Protein, Urine 3+ (Neg); Urobilinogen, Urine 1+ (Normal)
[2020-10-18 23:18] LABS: Appearance, Urine Hazy (Clear); Bacteria Many /hpf; Bilirubin, Urine 1+ (Neg); Color, Urine Yellow (P-Yellow); Red Blood Cells, Urine Rare /hpf (0-2); Squamous Epithelial Cells Not Seen /hpf (Few); White Blood Cells, Urine 50-100 /hpf (0-5)
[2020-10-19 01:53] LABS: Bun/Creatinine Ratio 11.9 (12.0-20.0); Calcium, Blood 8.6 mg/dL (8.5-10.1); Creatinine, Blood 4.96 mg/dL (0.60-1.20); Potassium, Blood 5.1 mmol/L (3.5-5.5); Troponin I 0.058 ng/mL (0.000-0.040)
--- NOTE | 2020-10-19 06:05 | NUR ---
SHIFT SUMMARY PATIENT ARRIVED TO ROOM 310 VIA STRETCHER AT 0057. HE IS ALERT AND ORIENTED X4 AND FOLLOWS DIRECTIONS WELL. HAS NO COMPLAINTS OF PAIN OR SHORTNESS OF BREATH. IS CURRENTLY ON 5 LITERS OF OXYGEN VIA NASAL CANULA SATING >92%. HE IS CURRENTLY BEDREST AT THIS TIME. IV PATENT AND FLUSHED. BED IN LOWEST POSITION WITH WHEELS LOCKED AND ALARM ON. CALL LIGHT WITHIN REACH. REPORT GIVEN TO ONCOMING RN.
[2020-10-19 09:36] LABS: BASOPHILS ABSOLUTE AUTO 0.04 K/mm3 (0.00-0.23); BASOPHILS PERCENT AUTO 0 % (0-2); EOSINOPHILS ABSOLUTE AUTO 0.05 K/mm3 (0.00-0.68); EOSINOPHILS PERCENT AUTO 1 % (0-6); Hematocrit 30.2 % (37.0-53.0); Hemoglobin 9.8 g/dL (13.5-17.5); IMMATURE GRAN ABSOLUTE AUTO 0.03 K/mm3 (0.00-0.10); IMMATURE GRAN PERCENT AUTO 0 % (0-1); LYMPHOCYTES ABSOLUTE AUTO 0.34 K/mm3 (0.84-5.20); LYMPHOCYTES PERCENT AUTO 4 % (21-46); MONOCYTES ABSOLUTE AUTO 1.07 K/mm3 (0.16-1.47); MONOCYTES PERCENT AUTO 12 % (4-13); Mean Corpuscular HGB 33.4 pg (26.0-34.0); Mean Corpuscular HGB Conc 32.5 g/dL (31.5-36.5); Mean Corpuscular Volume 103 fL (80-100); Mean Platelet Volume 10.5 fL (9.1-12.4); NEUTROPHILS ABSOLUTE AUTO 7.66 K/mm3 (1.96-9.15); NEUTROPHILS PERCENT AUTO 84 % (41-73); Platelet Count 171 K/mm3 (150-400); RDW Coefficient Variation 15.7 % (11.7-14.2); RDW Standard Deviation 58.8 fL (35.1-46.3); Red Blood Cell Count 2.93 M/mm3 (4.30-5.90); White Blood Cell Count 9.19 K/mm3 (4.00-11.30)
[2020-10-19 10:01] LABS: PCO2 Arterial 54.2 mmHg (35-45); PO2 Arterial 74.8 mmHg (80-100); pH Blood Arterial 7.43 (7.35-7.45)
[2020-10-19 10:10] LABS: Percent Saturation 12.8 % (20.0-50.0)
--- NOTE | 2020-10-19 16:25 | NUR ---
SHIFT SUMMARY PT AxOx4 WITH OCCASIONAL FORGETFULNESS. PT COOPERATIVE WITH CARE. ON BEDREST AT THIS TIME. PT HAD INPATIENT DIALYSIS THIS AM. PARACENTESIS HELD UNTIL TOMORROW. GROSS ABDOMINAL ASCITES. PT REPORTS CHRONIC PAIN IN NECK/SHOULDERS AND PAIN IN ABDOMEN FROM SWELLING. MEDICATED PER EMAR. PT BREATHING COMFORTABLY ON 4L O2, RA AT BASELINE. PT/OT CONSULTED. FLUID RESTRICTION IMPLEMENTED 1200ML/DAY. UPDATED DAUGHTER ASA VIA PHONE ON PATIENT STATUS. PT CURRENTLY RESTING IN BED WITH CALL LIGHT IN REACH. VITALS REVIEWED. DENIES ANY NEEDS AT THIS TIME.
--- NOTE | 2020-10-20 00:45 | NUR ---
SHONDA HALL: MATERIAL PROCESSOR, SHEN DUENAS, WAS ALERTED BY COMMUNICATIONS DEPARTMENT CHAIRPERSON THAT PT'S HR WAS DOWN TO 39 BPM AT 2324. SHE FOUND PT NONRESPONSIVE, CYANOTIC AND HE WASN'T BREATHING. SHE CALLED ME TO VERIFY HIS FULL CODE STATUS THEN CALLED CODE AT 2325 W/CHEST COMPRESSIONS COMMENCED IMMEDIATELY. CODE TEAM ARRIVED AT 2327 AND ASSUMED CARE RESUSCITATION AT THAT TIME. SPOKE W/PT'S DAUGHTER ASA TO CONFIRM CONTINUATION OF CPR/FULL CODE MEASURES. SEE SHONDA BLUE DOCUMENTATION FOR DETAILS OF RESUSCITATION ATTEMPT. TOD WAS 2348 AND PT'S DAUGHTER ARRIVED TO ROOM SHORTLY AFTER. COMFORT AND SUPPORT PROVIDED TO HER W/QUESTIONS ADDRESSED AND NO FURTHER NEEDS EXPRESSED. PASTORAL [facility] PER HER REQUEST AND [facility] DECLARED THE HOME OF CHOICE. SHE REMAINS AT BEDSIDE AT THIS TIME. PT HAD PREVIOUSLY BEEN PACED AT 50'S-60'S BPM W/RHYTHM THAT WAS PACED W/BBB AT 61 BPM AT 2117. RN AND ELASTIC ASSEMBLER WERE IN HIS ROOM AT APPROXIMATELY 2300 TO SL HIS IV FOLLOWING COMPLETION OF HIS IV ABX. HE WAS TALKING, INTERACTING W/STAFF AT THE TIME AND RAISED HIS ARM FOR IV TO BE DISCONNECTED. PT WAS IN NO APPARENT DISTRESS W/RESPS E/U ON RA. RESPS WERE SLIGHTLY SHALLOW BUT WERE UNCHANGED FROM INITIAL ASSESSMENT WHEN HE WAS A/OX4, SPECIFYING NEEDS AND DENIED PAIN OUTSIDE OF CHRONIC PAIN. HE SPECIFIED NUMBNESS/TINGLING TO THE "TOPS OF FEET", ANSWERED ALL Q'S CORRECTLY, DISCUSSED HIS RECENT PM REPLACEMENT SURGERY, STATED HAVING HAD DIALYSIS THIS MORNING AND WAS AWARE OF PARACENTESIS PLANNED FOR THE MORNING. HE'D CONTINUOUSLY DENIED SOB, DYSPNEA, PAIN, CP, DISCOMFORT AND ALL OTHER COMPLAINTS. VSS WERE STABLE AND TELEMETRY WAS INTACT PRIOR TO SPONTANEOUS ARREST.
--- NOTE | 2020-10-20 01:20 | NUR ---
Pastoral care visit conducted. Pt's daughter at bedside grieving appropriately. Condolences extended. Empathic listening and affirmation provided. Prayer was requested and given congruently. Daughter proceeded to reminisce and extends appreciation while remaining at the bedside.
--- NOTE | 2020-10-20 01:30 | NUR ---
PT'S DAUGHTER ASA HAS LEFT W/HIS BELONGINGS. SHE PLANS TO DISCUSS EVENT W/ ADDTIONAL FAMILY MEMBERS THEN WILL CALL TO LET US KNOW IF ANYONE ELSE WILL BE IN THIS EVENING.
--- NOTE | 2020-10-20 04:00 | NUR ---
PT'S DAUGHTER AND GRANDDAUGHTER HAVE RETURNED TO ROOM.
--- NOTE | 2020-10-20 04:55 | NUR ---
FAMILY LEFT AT THIS TIME.
[2020-10-20 07:11] LABS: HBSAG SCREEN Negative (Negative); HEP A AB, IGM Negative (Negative); HEP B CORE AB, IGM Negative (Negative); HEP C VIRUS AB <0.1 (0.0-0.9)
== END 2020-10-19 23:48 ==
LOC: ER 18:04 → MEDS 23:23 → ER 10-19 00:33 → MEDS 10-19 00:33
PROVIDERS: Emergency Medicine; Internal Medicine; ADMIT Internal Medicine
PROC: 5A12012 Performance of Cardiac Output, Single, Manual (ICD-10-PCS; principal; 2020-10-19)
DX: I13.2 Hypertensive heart and chronic kidney disease with heart failure and with stage 5 chronic kidney disease, or end stage renal disease (principal); N18.6 End stage renal disease; I21.A1 Myocardial infarction type 2; J96.01 Acute respiratory failure with hypoxia; I50.33 Acute on chronic diastolic (congestive) heart failure; G92 Toxic encephalopathy; J18.9 Pneumonia, unspecified organism; E87.1 Hypo-osmolality and hyponatremia; R18.8 Other ascites; N25.81 Secondary hyperparathyroidism of renal origin; Z66 Do not resuscitate; I46.2 Cardiac arrest due to underlying cardiac condition; I49.01 Ventricular fibrillation; E87.5 Hyperkalemia; D64.9 Anemia, unspecified; J44.9 Chronic obstructive pulmonary disease, unspecified; E11.22 Type 2 diabetes mellitus with diabetic chronic kidney disease; Z98.890 Other specified postprocedural states; Z95.1 Presence of aortocoronary bypass graft; Z95.0 Presence of cardiac pacemaker; G47.33 Obstructive sleep apnea (adult) (pediatric); I25.2 Old myocardial infarction; Z79.82 Long term (current) use of aspirin; Z79.899 Other long term (current) drug therapy; Z79.4 Long term (current) use of insulin; I48.0 Paroxysmal atrial fibrillation; I25.10 Atherosclerotic heart disease of native coronary artery without angina pectoris; Z99.2 Dependence on renal dialysis
CPT/HCPCS: 31500; 36415; 36600; 51701; 70450; 71045; 72125; 74176; 80047; 80048; 80053; 80074; 81001; 82105; 82140; 82607; 82728; 82746; 82803; 82947; 83540; 83550; 83735; 83880; 84145; 84484; 85014; 85025; 85610; 87077; 87086; 87186; 92950; 93005; 93010; 96374-59; 96375-59; 99285-25; A9270; J0696; J1940; J2270; J2405